=== PATIENT | female | born 1940 | race Caucasian/White ===

== ENCOUNTER 2024-03-26 23:53 | Inpatient (IN) | payer MEDICARE, MEDICAID, SELFPAY ==
[2024-03-26 20:45] VITALS: BP 154/84
--- NOTE | 2024-03-26 20:53 | ED.MUSCINJ ---
HPI-Injury
<Oksana Mcadams, WELDING TECHNICIAN - Last Filed: 03/29/24 16:47>
General
Chief Complaint: Fall
Source: patient, ambulance crew and [facility] records
Exam Limitations: none
Time Seen by Provider: 03/26/24 20:51
Travel History
Have you had any contact with someone who has COVID-19?: No
Do you have any symptoms of coronavirus? Fever > 100 degrees, chills, cough, shortness of breath, sore throat, loss of taste or smell, muscle aches, or headache?: No
History of Present Illness-Injury
Initial Injury comments:
83 yo female from [place] states she slipped and fell in her room. She denies feeling weak or dizzy prior to fall. She denies hitting her head, states she fell onto left side. Was not able to get up. Staff arrived immediately, there was no LOC.
Pt states she can't move her left leg due to pain in the left knee.
Past History
<Oksana Mcadams, WELDING TECHNICIAN - Last Filed: 03/29/24 16:47>
Past History
ED Past Medical History: Cancer, Psychiatric (anxiety. Has 86/90 Xanax in a pill bottle from 07/22/14 her friend brought. He will hold on to them until she is recovered from this incident.) and Other (Alcohol abuse); Negative Fibromyalgia, HTN,
Hypercholesterolemia or IDDM
ED Past Surgical History: None
Social History
Tobacco: Former smoker
Alcohol: Former
Drug: None
Personal: Single
Living: [facility]
Employment: Not employed
Family History
Family History: Hypertension; Negative Early CAD
Review of Systems
<Oksana Mcadams, WELDING TECHNICIAN - Last Filed: 03/29/24 16:47>
Review of Systems
Allergies reviewed?: Yes
All Other Systems: ROS reviewed and negative except as documented in HPI and ROS
Constitutional: Denies fever, fatigue or chills
Respiratory: Denies trouble breathing
Cardiac: Denies chest pain, palpitations or syncope
ABD/GI: Denies abdominal pain, nausea, vomiting, diarrhea, constipated, bloody stools, black stools or anorexia
: Denies dysuria, frequency, difficulty voiding or urgency
Musculoskeletal: Reports other (pain LLE); Denies edema
Skin: Reports no symptoms
Neurological: Reports no symptoms
Phy Exam
<Oksana Mcadams WELDING TECHNICIAN - Last Filed: 03/29/24 16:47>
Physical Exam
Physical Exam:
GENERAL: No acute distress. A&Ox3.
CONSTITUTIONAL: Afebrile.
Head : NC/AT
EYES: PERRL, conjunctivae normal
Neck: Supple
ENMT: moist mucus membranes, Pharynx nl
RESPIRATORY: Regular respirations, nonlabored, lungs clear.
CARDIOVASCULAR: Regular rate and rhythm, no murmurs, no rubs.
GI: Soft, nontender, normal BS
MUSCULOSKELETAL: Unable to move left leg due to pain in knee and hip. Well perfused. No edema.
SKIN: Warm, dry, pink
PSYCH: Normal mood and affect. Well kept, interactive and appropriate
NEUROLOGIC: Awake, alert and oriented. No focal neurological deficits
Injury Course
<Oksana Mcadams, WELDING TECHNICIAN - Last Filed: 03/29/24 16:47>
Orders/Labs/Results
Orders:
Orders
03/26/24 20:52
Urinalysis Reflex To Culture Urgent
Date Specimen was Collected: 03/27/24
Time Specimen was Collected: 15:11
Hip, Left 2-3 Views [CR Hip - LT w/wo Pel 2-3 Vw*] Urgent
Comment:
Reason For Exam: pain after fall
Include a pelvis x-ray?: Yes
03/26/24 21:31
Complete Blood Count/With Diff Urgent
Comprehensive Metabolic Panel Urgent
03/26/24 23:28
Admit/Transfer Patient As Directed
Co-Sign Provider:
Level of Care: Inpatient admission
Assign to:: Medical/Surgical
Physician / Group: barbara
Diagnosis: hip fracture
Reason for Hospitalization: hip fracture
Expected length of stay greater than two midnights?: Yes
ELOS- Estimated Length of Stay in days: 2
I certify the patient meets the requirements for IP care: Yes
Code Status As Directed
Resuscitation Status: Full Code
03/27/24 00:51
Acetaminophen [Tylenol] 650 mg PO Q4HPRN PRN
Bisacodyl [Dulcolax] 10 mg RECTAL DAILY PRN
HYDROmorphone [Dilaudid] 0.5 mg IV Q4HPRN PRN
Ketorolac [Toradol] 10 mg IV Q6HPRN PRN
Lidocaine 4% Cream [Lmx 4] 1 applic TOPICAL Q8H PRN
Magnesium Hydroxide [Milk of Magnesia] 30 ml PO DAILY PRN
Ondansetron HCl [Zofran] 4 mg PO Q8H PRN
Phosphate Enema [Fleet Phosphate Enema-Adult] 135 ml RECTAL DAILY PRN
03/27/24 00:51
ORTHOPEDIC CONSULT Routine
Consulting Provider: Jet Claire
Was physician already notified: Yes
Activity As Directed
Activity Level: As Tolerated
Pneumatic Compression Sleeves As Directed
Type: Knee high
Vital Signs As Directed
Frequency: Per unit guidelines
DX Deep Vein Thrombosis Video Routine
03/27/24 02:01
Calcium Carbonate [Oscal Burak 500] 1,000 mg PO Q8H PRN
03/27/24 Breakfast
NPO
Allow oral meds: Yes
Allow clear liquids: Sips of Clears
03/27/24 06:48
Complete Blood Count/With Diff IN AM
Comprehensive Metabolic Panel IN AM
03/27/24 08:00
Calcium Carbonate [Oscal Burak 500] 500 mg PO DAILY
Cholecalciferol (Vitamin D3) [VITAMIN D3 (cholecalciferol)] 50 mcg PO DAILY
Divalproex Delayed Rel. 12 Hr [Depakote (12 Hr Release)] 125 mg PO TID
FOLic ACID [Folvite] 0.4 mg PO DAILY
Lidocaine 4% Cream [Lmx 4] 1 applic TOPICAL BID
Oxybutynin Chloride [Ditropan] 5 mg PO BID
Sertraline HCl [Zoloft] 50 mg PO DAILY
Thiamine HCl [Vitamin B1] 100 mg PO DAILY
Vitamin B Complex with C [B COMPLEX w/VITAMIN C] 1 caplet PO DAILY
menthol [Biofreeze (menthol)] 1 applic TOPICAL BID
03/27/24 Dinner
Regular
At Your Request: Full Participation
03/27/24 18:00
Atorvastatin [Lipitor] 20 mg PO QPM
Famotidine [Pepcid] 20 mg PO QPM
Abnormal Lab Results
03/26/24
21:31
RBC 3.94 L 10^6/uL
(4.20-5.40)
Hgb 11.7 L g/dL
(12.0-16.0)
Hct 33.8 L %
(37.0-47.0)
Monocytes % 9.4 H %
(1.7-9.3)
Sodium 134 L mmol/L
(135-145)
BUN 25 H mg/dl
(7-17)
Glucose 103 H mg/dl
(70-99)
Total Protein 6.0 L g/dl
(6.3-8.2)
03/26/24 21:31
03/26/24 21:31
<Carroll Avalos, DO - Last Filed: 03/29/24 19:22>
Orders/Labs/Results
Orders:
Orders
03/26/24 20:52
Urinalysis Reflex To Culture Urgent
Date Specimen was Collected: 03/27/24
Time Specimen was Collected: 15:11
Hip, Left 2-3 Views [CR Hip - LT w/wo Pel 2-3 Vw*] Urgent
Comment:
Reason For Exam: pain after fall
Include a pelvis x-ray?: Yes
03/26/24 21:31
Complete Blood Count/With Diff Urgent
Comprehensive Metabolic Panel Urgent
03/26/24 23:28
Admit/Transfer Patient As Directed
Co-Sign Provider:
Level of Care: Inpatient admission
Assign to:: Medical/Surgical
Physician / Group: barbara
Diagnosis: hip fracture
Reason for Hospitalization: hip fracture
Expected length of stay greater than two midnights?: Yes
ELOS- Estimated Length of Stay in days: 2
I certify the patient meets the requirements for IP care: Yes
Code Status As Directed
Resuscitation Status: Full Code
03/27/24 00:51
Acetaminophen [Tylenol] 650 mg PO Q4HPRN PRN
Bisacodyl [Dulcolax] 10 mg RECTAL DAILY PRN
HYDROmorphone [Dilaudid] 0.5 mg IV Q4HPRN PRN
Ketorolac [Toradol] 10 mg IV Q6HPRN PRN
Lidocaine 4% Cream [Lmx 4] 1 applic TOPICAL Q8H PRN
Magnesium Hydroxide [Milk of Magnesia] 30 ml PO DAILY PRN
Ondansetron HCl [Zofran] 4 mg PO Q8H PRN
Phosphate Enema [Fleet Phosphate Enema-Adult] 135 ml RECTAL DAILY PRN
03/27/24 00:51
ORTHOPEDIC CONSULT Routine
Consulting Provider: Jet Claire
Was physician already notified: Yes
Activity As Directed
Activity Level: As Tolerated
Pneumatic Compression Sleeves As Directed
Type: Knee high
Vital Signs As Directed
Frequency: Per unit guidelines
DX Deep Vein Thrombosis Video Routine
03/27/24 02:01
Calcium Carbonate [Oscal Burak 500] 1,000 mg PO Q8H PRN
03/27/24 Breakfast
NPO
Allow oral meds: Yes
Allow clear liquids: Sips of Clears
03/27/24 06:48
Complete Blood Count/With Diff IN AM
Comprehensive Metabolic Panel IN AM
03/27/24 08:00
Calcium Carbonate [Oscal Burak 500] 500 mg PO DAILY
Cholecalciferol (Vitamin D3) [VITAMIN D3 (cholecalciferol)] 50 mcg PO DAILY
Divalproex Delayed Rel. 12 Hr [Depakote (12 Hr Release)] 125 mg PO TID
FOLic ACID [Folvite] 0.4 mg PO DAILY
Lidocaine 4% Cream [Lmx 4] 1 applic TOPICAL BID
Oxybutynin Chloride [Ditropan] 5 mg PO BID
Sertraline HCl [Zoloft] 50 mg PO DAILY
Thiamine HCl [Vitamin B1] 100 mg PO DAILY
Vitamin B Complex with C [B COMPLEX w/VITAMIN C] 1 caplet PO DAILY
menthol [Biofreeze (menthol)] 1 applic TOPICAL BID
03/27/24 Dinner
Regular
At Your Request: Full Participation
03/27/24 18:00
Atorvastatin [Lipitor] 20 mg PO QPM
Famotidine [Pepcid] 20 mg PO QPM
Abnormal Lab Results
03/26/24
21:31
RBC 3.94 L 10^6/uL
(4.20-5.40)
Hgb 11.7 L g/dL
(12.0-16.0)
Hct 33.8 L %
(37.0-47.0)
Monocytes % 9.4 H %
(1.7-9.3)
Sodium 134 L mmol/L
(135-145)
BUN 25 H mg/dl
(7-17)
Glucose 103 H mg/dl
(70-99)
Total Protein 6.0 L g/dl
(6.3-8.2)
03/26/24 21:31
03/26/24 21:31
<Oksana Mcadams WELDING TECHNICIAN - Last Filed: 03/29/24 16:47>
MDM/Problems Addressed
Differential Diagnosis Includes:
Fx left hip, dehydration, UTI
MDM/Problems Addressed:
83 yo female from [place] with history of HLD, HTN, MDD, bipolar, GERD, states she slipped and fell in her room. She denies feeling weak or dizzy prior to fall. She denies hitting her head, states she fell onto left side. Was not able to get up.
Staff arrived immediately, there was no LOC. Pt states she can't move her left leg due to pain in the left knee.
On exam left leg is externally rotated and suspect left hip injury. Left knee and mid to distal femur is without bony tenderness to palpation.
Pt denies CP, SOB, abdominal pain, headache, neck pain.
Pt typically ambulates without assistance
9:50 PM
CBC with no clinically significant abnormality
Case discussed with Dr. Avalos who will assume care from this point
U/A CMP and left hip xray pending
Chronic conditions affecting care: HTN
<Oksana Mcadams WELDING TECHNICIAN - Last Filed: 03/29/24 16:47>
*Critical Care Note
Total Time (30-74mins, 75-104mins- exclusive of procedures): Not Applicable
ED Attending Note
<Oksana Mcadams, WELDING TECHNICIAN - Last Filed: 03/29/24 16:47>
-
Portions of this chart may have been created with voice recognition software.� Occasional wrong word or��sound alike� substitutions may have occurred due to the inherent limitations of voice recognition software.
<Carroll Avalos, DO - Last Filed: 03/29/24 19:22>
ED Attending Note
Patient seen and examined by attending physician: Yes
ED Attending Note:
I have reviewed and agree with history and treatment plan by Sara Mcadams. Patient with left hip femoral neck fracture. Admit to hospitalist. Orthopedics aware.
Discharge Plan
Departure
Patient Disposition: Admit
Date of Disposition: 03/26/24
Time of Disposition: 22:51
Admit to: Med/Surg
Presentation/result/management discussed w/ accepting MD/DO: Hospitalist
Condition: Fair
Discharge Problem:
Closed fracture of neck of left femur
Interventions
Interventions:
*Risk Screen - Suicide Last Done: 03/26/24 20:45
*General Assessment Last Done: 03/26/24 20:45
*Neglect/Abuse Screening Last Done: 03/26/24 20:45
ED- Fall Risk Assessment Last Done: 03/26/24 21:32
*ED COVID-19 Vaccine History Last Done: 03/26/24 20:45
*Nursing Disposition Last Done: 03/27/24 00:00
ED-Musculoskeletal Assessment Last Done: 03/27/24 10:15
ED- Neurological Assessment Last Done: 03/27/24 10:15
ED-Skin Assessment Last Done: 03/27/24 10:15
Discharge Date and Time
Discharge Date/Time: 03/27/24 11:00
[2024-03-26 21:35] LABS: % Basophils 0.8 % (0-2); % Eosinophils 3.6 % (0-6); % Immature Granulocytes 0.3 % (0-0.5); % Lymphocytes 21.2 % (20.5-51.1); % Monocytes 9.4 % (1.7-9.3); % Neutrophils 64.7 % (42.2-75.2); Absolute Basophils 0.1 10^3/uL (0-0.2); Absolute Eosinophils 0.2 10^3/uL (0-0.7); Absolute Lymphocytes 1.4 10^3/uL (1.2-3.4); Absolute Monocytes 0.6 10^3/uL (0.1-0.6); Absolute Neutrophils 4.3 10^3/uL (1.4-6.5); Hematocrit 33.8 % (37.0-47.0); Hemoglobin 11.7 g/dL (12.0-16.0); Mean Corp Hgb Conc. 34.6 g/dL (33.0-37.0); Mean Corpuscular Hgb 29.7 pg (27.0-31.0); Mean Corpuscular Volume 85.8 fL (81.0-99.0); Mean Platelet Volume 9.8 fL (7.4-10.4); Nucleated Red Blood Cells % 0 %; Platelet Count 159 10^3/uL (130-400); Red Blood Cell Count 3.94 10^6/uL (4.20-5.40); Red Cell Dist. Width 13.3 % (11.5-14.5); White Blood Cell Count 6.6 10^3/uL (4.8-10.8)
[2024-03-26 21:41] VITALS: BMI 28.7
[2024-03-26 21:53] LABS: ALT (SGPT) 13 U/L (0-35); AST (SGOT) 22 U/L (14-36); Albumin 3.9 g/dl (3.5-5.0); Alkaline Phosphatase 60 U/L (38-126); Blood Urea Nitrogen 25 mg/dl (7-17); Calcium 9.5 mg/dl (8.4-10.2); Carbon Dioxide 28 mmol/L (22-30); Chloride 100 mmol/L (98-107); Estimated Creatinine Clearance 53 ml/min; Glucose 103 mg/dl (70-99); Potassium 4.1 mmol/L (3.5-5.1); Sodium 134 mmol/L (135-145); Total Bilirubin 1.1 mg/dl (0.2-1.3); eGFR > 60.00
--- NOTE | 2024-03-26 23:33 | HPS.HSE ---
Family Physician
-
Family Physician: Travis Zapien, DO
Chief Complaint
-
fall
History of Present Illness
83-year-old female past medical history of CLL, normal pressure hydrocephalus, anxiety, depression, former alcohol use disorder, presenting from [facility] after slipping and falling in her room. Denies feeling weak or dizziness prior to fall. She
denies hitting her head. She fell onto her left side. She was unable to get up. She denies loss of consciousness, chest pain or shortness of breath. Cannot move her left leg due to pain in the left knee.
She sometimes ambulates with walker at baseline.
Patient denies excessive alcohol use and states that she drinks alcohol on occasion socially. Denies smoking.
Medical History
Past Medical History
Past Medical History: Reports Other (CLL, normal pressure hydrocephalus, anxiety, depression, former alcohol use disorder)
Past Surgical History: Reports None
Social History
Tobacco: Non-smoker
Alcohol: Occasional
Drug: None
Family History
Family History: Not pertinent
Allergies / Home Medications
Allergies reflects when Allergies were last updated in [facility].
Home Medications with original date entered in [facility]
Allergy/Medication List:
Allergies
Allergy/AdvReac Type Severity Reaction Status Date / Time
adhesive tape [Adhesive Tape] Allergy Severe 'burned Verified 03/26/24 20:45
skin'
Home Medications
sertraline 50 mg tablet 50 mg PO DAILY 04/16/15
acetaminophen 325 mg tablet 650 mg PO DAILY 03/26/24
acetaminophen 325 mg tablet 650 mg PO Q6H PRN mild pain/temp>100.5 03/26/24
atorvastatin 20 mg tablet 20 mg PO QPM 03/26/24
bisacodyl 10 mg rectal suppository (Dulcolax (bisacodyl)) 10 mg AL DAILY PRN if no bm x 3 days 03/26/24
calcium carbonate 1,000 mg PO Q8H PRN indigestion 03/26/24
calcium carbonate (Calcium 600) 600 mg PO DAILY 03/26/24
cholecalciferol (vitamin D3) 62.5 mcg (2,500 unit) capsule 62.5 mcg PO DAILY 03/26/24
divalproex 125 mg tablet,delayed release 125 mg PO TID 03/26/24
famotidine 20 mg tablet 20 mg PO QPM 03/26/24
folic acid 400 mcg tablet 0.4 mg PO DAILY 03/26/24
ibuprofen 800 mg tablet 800 mg PO Q6H PRN mild pain 03/26/24
lidocaine 4 % topical cream 1 applic topical BID knee pain 03/26/24
lidocaine 4 % topical cream 1 applic topical Q8H PRN knee pain 03/26/24
magnesium hydroxide 400 mg/5 mL oral suspension (Milk of Magnesia) 30 ml PO DAILY PRN if no bm in 3 days 03/26/24
menthol 4 % topical gel (Biofreeze (menthol)) 1 applic topical BID both knees 03/26/24
naproxen 250 mg tablet 125 mg PO BID 03/26/24
ondansetron HCl 4 mg tablet 4 mg PO Q8H PRN nausea 03/26/24
oxybutynin chloride 5 mg tablet 5 mg PO BID 03/26/24
sodium phosphates 19 gram-7 gram/118 mL enema (Fleet Enema) 118 ml AL DAILY PRN if suppository is not effective for 24hrs 03/26/24
thiamine HCl (vitamin B1) 100 mg tablet 100 mg PO DAILY 03/26/24
vitamin B complex 1 tab PO DAILY 03/26/24
Review of Systems
-
History Source: Patient
A 12 point ROS was completed and negative except as noted: Yes
Constitutional: Reports No Symptoms
EENT: Reports No Symptoms
Respiratory: Reports No Symptoms
Cardiac: Reports No Symptoms
Abdomen/GI: Reports No Symptoms
: Reports No Symptoms
Musculoskeletal: Reports See HPI
Skin: Reports No Symptoms
Neurological: Reports No Symptoms
Endocrine: Reports No Symptoms
Hematologic/Lymphatic: Reports No Symptoms
Psych: Reports No Symptoms
Physical Exam
Vital Signs
Vital Signs
Temp Pulse Resp BP Pulse Ox
97.4 F 73 19 154/84 95
03/26/24 21:40 03/26/24 20:45 03/26/24 20:45 03/26/24 20:45 03/26/24 20:45
Physical Exam
General: Well Developed, Well Nourished and No Apparent Distress
HEENT: NormoCephalic, Moist mucous membranes and Atraumatic
Respiratory: Clear
Cardiac: S1/S2 and Regular Rhythm; No Murmur or Rub
GI: Soft, Non Tender, Non Distended and Normal Bowel Sounds; No Organomegaly
Rectal: Deferred by Provider
Musculoskeletal: No Clubbing, No Cyanosis and No Edema
Skin: No Rash
Neuro: Nonfocal/grossly intact
Laboratory Results
-
03/26/24 21:31
03/26/24 21:31
Laboratory Results
Total Bilirubin 1.1 mg/dl (0.2-1.3) 03/26/24 21:31
AST 22 U/L (14-36) 03/26/24 21:31
ALT 13 U/L (0-35) 03/26/24 21:31
Alkaline Phosphatase 60 U/L (38-126) 03/26/24 21:31
Data Reviewed
-
Lab Data: Labs Reviewed by me
Old Records: Reviewed
Impression/Plan
-
IMPRESSION:
PLAN:
# Acute mildly displaced left intertrochanteric hip fracture
-Tylenol, Dilaudid for pain
-Orthopedics consulted
-N.p.o. past midnight
-Tylenol, Toradol, Dilaudid as needed for pain
-Check EKG
-Patient with low risk of cardiovascular complications and can proceed to surgery
CLL
Normal pressure hydrocephalus
Anxiety/depression
-Continue sertraline
Alcohol use disorder
-Continue thiamine, folic acid
Hyperlipidemia
-Continue statin
Divalproex use
-Patient denies any history of bipolar, seizures or tremors, unclear why she takes
Overactive bladder
-Continue oxybutynin
Full code
DVT prophylaxis�SCDs
N.p.o. past midnight
[2024-03-27] VITALS (12 sets, daily range): BP systolic 116–140; BP diastolic 47–86
[2024-03-27] MEDS: DILAUDID 0.5 MG IV (02:47)
[2024-03-27 07:03] LABS: % Basophils 0.3 % (0-2); % Eosinophils 0.1 % (0-6); % Immature Granulocytes 0.4 % (0-0.5); % Lymphocytes 9.7 % (20.5-51.1); % Monocytes 6.7 % (1.7-9.3); % Neutrophils 82.8 % (42.2-75.2); Absolute Monocytes 0.7 10^3/uL (0.1-0.6); Absolute Neutrophils 8.1 10^3/uL (1.4-6.5); Hematocrit 33.1 % (37.0-47.0); Mean Corp Hgb Conc. 33.2 g/dL (33.0-37.0); Mean Corpuscular Hgb 29.6 pg (27.0-31.0); Mean Platelet Volume 10.1 fL (7.4-10.4); Nucleated Red Blood Cells % 0 %; Platelet Count 151 10^3/uL (130-400); Red Blood Cell Count 3.72 10^6/uL (4.20-5.40); Red Cell Dist. Width 13.2 % (11.5-14.5); White Blood Cell Count 9.8 10^3/uL (4.8-10.8)
--- NOTE | 2024-03-27 07:45 | W.PN.UPDATE ---
Update Note
Progress Note Update
Patient seen at bedside and chart reviewed
83 yo F s/p fall with left IT femur fracture
NWB LLE
NPO
Hold DVT ppx
Pain control
Medical management per primary team
To OR today for operative fixation left IT femur fracture pending medical clearance and OR availibility
[2024-03-27 07:54] LABS: ALT (SGPT) 12 U/L (0-35); AST (SGOT) 24 U/L (14-36); Albumin 3.5 g/dl (3.5-5.0); Alkaline Phosphatase 52 U/L (38-126); Blood Urea Nitrogen 23 mg/dl (7-17); Carbon Dioxide 30 mmol/L (22-30); Chloride 100 mmol/L (98-107); Estimated Creatinine Clearance 68 ml/min; Glucose 121 mg/dl (70-99); Potassium 4.7 mmol/L (3.5-5.1); Sodium 136 mmol/L (135-145); Total Bilirubin 1.2 mg/dl (0.2-1.3); Total Protein 5.6 g/dl (6.3-8.2); eGFR > 60.00
--- NOTE | 2024-03-27 10:13 | W.PN.HOSP.TC ---
Today's Communication/Plan
-
For surgical fixation today
Assessment / Plan
Assessment / Plan
HPI: 83-year-old female past medical history of CLL, normal pressure hydrocephalus, anxiety, depression, former alcohol use disorder, presenting from [facility] after slipping and falling in her room. Denies feeling weak or dizziness prior to fall.
She denies hitting her head. She fell onto her left side. She was unable to get up. She denies loss of consciousness, chest pain or shortness of breath. Cannot move her left leg due to pain in the left knee.
She sometimes ambulates with walker at baseline.
# Acute mildly displaced left intertrochanteric hip fracture
Appreciate orthopedic surgery input, plan for ORIF today
Tylenol, Toradol, Dilaudid as needed for pain
Patient with low risk of cardiovascular complications and can proceed to surgery
# CLL
Monitor
Normal pressure hydrocephalus
Anxiety/depression
-Continue sertraline
Alcohol use disorder
-Continue thiamine, folic acid
Hyperlipidemia
-Continue statin
Divalproex use
-Patient denies any history of bipolar, seizures or tremors, unclear why she takes
Overactive bladder
-Continue oxybutynin
DVT prophylaxis�SCDs
Full code
Total time spent to see the patient on the floor, examine the patient, review data and lab results, discuss treatment plan with patient, nursing staff around 35 minutes.
Physical Exam
General: No acute distress
HEENT: Normocephalic, Atraumatic, EOMI, MMM
Respiratory: Clear to Auscultation bilaterally
Cardiac: Normal S1/S2, Regular Rate and Rhythm
GI: Soft, Nontender, Nondistended, Normal Bowel Sounds
Extremities: No Clubbing, Cyanosis
Left leg shortened and externally rotated
Neuro: Nonfocal/Grossly Intact
Psych: Calm, Cooperative
Derm: No Visible lesions
Anticipated Discharge: > 48 hours
Subjective/Interval History
-
Date of Service: March 27, 2024
Patient reports her left hip pain is tolerable. No chest pain, no shortness of breath. No fever, no vomiting.
Objective Data
-
Labs:
Laboratory Results
03/27/24
06:48
WBC 9.8
Hgb 11.0 L
Hct 33.1 L
Plt Count 151
Sodium 136
Potassium 4.7
Chloride 100
Carbon Dioxide 30
BUN 23 H
Creatinine 0.7
Glucose 121 H
Calcium 9.0
Total Bilirubin 1.2
AST 24
ALT 12
Alkaline Phosphatase 52
Vital Signs:
Vital Signs
Temp Pulse Resp BP Pulse Ox
97.4 F 77 16 120/72 97
03/26/24 21:40 03/27/24 02:50 03/27/24 02:50 03/27/24 02:50 03/27/24 03:15
[2024-03-27] MEDS: DITROPAN 5 MG PO ×2 (10:25→21:56)
[2024-03-27] MEDS: VITAMIN B1 100 MG PO (10:25)
[2024-03-27] MEDS: ZOLOFT 50 MG PO (10:25)
[2024-03-27] MEDS: FOLVITE 0.400000000000000022 MG PO (10:25)
[2024-03-27] MEDS: VITAMIN D3 (cholecalciferol) 50 MCG PO (10:25)
[2024-03-27] MEDS: DEPAKOTE (12 HR RELEASE) 125 MG PO ×2 (10:26→21:55)
[2024-03-27] MEDS: OSCAL CAL 500 500 MG PO ×2 (10:27)
[2024-03-27] MEDS: LMX 4 1 APPLIC TOPICAL (10:28)
[2024-03-27] MEDS: B COMPLEX w/VITAMIN C PO (12:00)
--- NOTE | 2024-03-27 15:22 | PTCARENOTE ---
Pt being held in SDS until surgery. Pt unable to void on bed newberry. Bladder scanned for over [address] Garcia notified and order placed for straight cath. Pt straight cath'd for 450 of mayank urine. Urine culture sent.
[2024-03-27 15:50] LABS: Urine Albumin Negative (Neg - Trace); Urine Bilirubin 1+ (Negative); Urine Character Clear (Clear); Urine Color Yellow; Urine Glucose Negative (Negative); Urine Ketone 1+ (Negative); Urine Leukocyte Trace (Negative); Urine Nitrite Negative (Negative); Urine Occult Blood Negative (Negative); Urine Specific Gravity 1.015 (<1.030); Urine Urobilinogen 1+ (Neg - 1+)
[2024-03-27 15:58] LABS: Urine Red Blood Cell 0-2 /HPF (0-2); Urine Squamous Cell 0-2 /LPF (Few)
[2024-03-27 15:59] LABS: Urine Bacteria Few (Negative); Urine White Cell 0-2 /HPF (0-5)
[2024-03-27] MEDS: ZOFRAN 4 MG IV ×2 (16:14→19:18)
--- NOTE | 2024-03-27 16:39 | PTCARENOTE ---
Pt was a hold in SDS. OR came to get pt at aprox 1630. CHG cloths done and new gown placed. Most admission interventions done but unable to do the historical part of admission due to error code on screen.
--- NOTE | 2024-03-27 18:00 | OR.RPT ---
Operative Report
Operative Report
Anesthesia Type:
General
Operative Indications:
Left intertrochanteric femur fracture
Operative Findings :
Same
Complications:
None
Implants:
[place] gamma nail 125 degrees x 10 mm, 100 mm cephalomedullary screw, 35 x 5 mm distal interlocking screw
Procedure and Technique:
Left short cephalomedullary nail insertion
INDICATIONS FOR PROCEDURE:
83-year-old patient presented status post mechanical fall. There was subsequently diagnosed with an intertrochanteric femur fracture. Orthopedics was consulted for further evaluation and treatment. After discussion with the patient and her
family, decision was made to proceed with operative intervention in the form of short cephalomedullary nail. Long discussion was had regarding risks and benefits of procedure. Risks include but are not limited to infection, blood loss, damage to
surrounding structures, persistent pain, loss of function, need for repeat surgery, implant cut out, periprosthetic fracture, DVT/PE and adverse risks of anesthesia. Benefits include early mobilization and fracture stabilization. After discussion
written informed consent was obtained.
OPERATIVE PROCEDURE:
Patient was seen and identified in the preoperative holding area. Operative extremity was marked. Patient was taken to the operating room and provided anesthesia by the anesthesia team. Placed supine on fracture table. Nonoperative extremity was
placed in a scissored position and padded with a pillow to the central post of the fracture table. Operative extremity was placed in a well-padded fracture boot. Biplanar fluoroscopy confirmed appropriate reduction after axial traction, adduction
and slight internal rotation of the fracture. Operative extremity was then prepped and draped in normal sterile fashion. Timeout was performed again identifying the operative extremity correctly. Preoperative antibiotics were addressed.
Approximately 5 cm incision was made 2 fingerbreadths proximal to the greater trochanter. Sharp dissection was carried through skin and subcutaneous tissues deep fascial layers. Guidepin was then inserted under biplanar fluoroscopic guidance
through the greater trochanter in accordance with the implants operative technique. This was inserted to a depth just distal to the lesser trochanter. Proximal opening reamer was then utilized. A 10 millimeter X 125 degree short cephalomedullary
nail was then inserted to the appropriate depth. Trocar was then inserted through the aiming arm. Sharp dissection was then carried through skin and subcutaneous tissues as well as deep fascial layers. Guidewire was inserted through the trocar
into the femoral neck and head. Appropriate position was confirmed under biplanar fluoroscopy. Attention was made to minimize the tip apex distance. Measurements were obtained for the cephalomedullary screw. Cannulated drill was then drilled to
the appropriate depth followed by the insertion of cannulated cephalomedullary screw. Appropriate final position of the screw within the confines of the femoral neck and head were confirmed again on biplanar fluoroscopy. Some compression was
achieved through the implant. Setscrew was then deployed. Additional trocar was then inserted through the aiming arm for the distal interlocking screw. Sharp dissection was carried through skin, subcutaneous tissues and deep fascial layers.
Appropriate length interlocking screw was then drilled and inserted. Final appropriate positioning was confirmed again on biplanar fluoroscopy. Satisfied with the extent of surgery, wounds were copiously irrigated with normal saline solution and
closed in a layered fashion utilizing 0 Vicryl for deep fascial layer, 2-0 Vicryl for subcu cutaneous layer and janel for skin. Aquacel dressings were applied. Anesthesia was reversed and patient was taken to the operating room in stable
condition. Postoperative plans will include weightbearing the patient's tolerance operative extremity. Will recommend renally dosed Lovenox x 28 days for DVT prophylaxis. Follow-up in the office in 2 to 3 weeks for repeat evaluation with planned
removal of janel
Disposition:
PACU stable condition
--- NOTE | 2024-03-27 18:14 | SUR.PHASEI ---
Rec'd sleepy in bed somewhat agitated and confused, reassured, oriented x3 by RN reassured, positioned for comfort
--- NOTE | 2024-03-27 18:23 | SUR.PHASEI ---
Confused, attempting to get out of bed, reassured, reoriented, warm blankets given zachary well
--- NOTE | 2024-03-27 18:35 | SUR.PHASEI ---
Remains sl agitated, reassured, c/o 'I feel like I'm gonna throw up' alcohol smelled, zachary well, stating, wants to get up reassured, reoriented
--- NOTE | 2024-03-27 18:54 | SUR.PHASEI ---
Calmer, no c/o nausea, ice chip given zachary well
--- NOTE | 2024-03-27 19:04 | CON.ORTHO ---
Consultation
-
Date/Time Consultation Requested: 1030 PM 03/26/2024
Date/Time Consultation Performed: 730 AM 03/27/2024
Requesting Provider: ED
Performing Provider: Alethea
Reason for Consultation: Left hip fracture
Consultation - Orthopedics
History
83-year-old female presented to the emergency department status post slip and fall at her living facility with complaints of left hip pain and inability to bear weight. She was subsequently diagnosed with a left intertrochanteric femur fracture.
She was admitted to the hospitalist service and orthopedics was consulted for further evaluation and treatment. This morning patient reports pain well localized to the left hip and groin area. Pain is made worse with any direct palpation affected
area and with attempted ambulation. Denies pain elsewhere. She reports occasionally using assistive devices for ambulatory purposes.
Allergies / Home Medications
Past medical history: CLL, normal pressure hydrocephalus, anxiety, depression
Past surgical history: None reported
Social history: Non-smoker, occasional alcohol use
Family history: Not pertinent
Allergy/AdvReac Type Severity Reaction Status Date / Time
adhesive tape [Adhesive Tape] Allergy 'burned Verified 03/27/24 16:27
skin'
�Medication �Instructions �Recorded
sertraline 50 mg tablet 50 mg PO DAILY 04/16/15
acetaminophen 325 mg tablet 650 mg PO DAILY 03/26/24
acetaminophen 325 mg tablet 650 mg PO Q6H PRN mild 03/26/24
pain/temp>100.5
atorvastatin 20 mg tablet 20 mg PO QPM 03/26/24
bisacodyl 10 mg rectal suppository 10 mg FL DAILY PRN if no bm x 3 03/26/24
(Dulcolax (bisacodyl)) days
calcium carbonate 1,000 mg PO Q8H PRN indigestion 03/26/24
calcium carbonate (Calcium 600) 600 mg PO DAILY 03/26/24
cholecalciferol (vitamin D3) 62.5 62.5 mcg PO DAILY 03/26/24
mcg (2,500 unit) capsule
divalproex 125 mg tablet,delayed 125 mg PO TID 03/26/24
release
famotidine 20 mg tablet 20 mg PO QPM 03/26/24
folic acid 400 mcg tablet 0.4 mg PO DAILY 03/26/24
ibuprofen 800 mg tablet 800 mg PO Q6H PRN mild pain 03/26/24
lidocaine 4 % topical cream 1 applic topical BID knee pain 03/26/24
lidocaine 4 % topical cream 1 applic topical Q8H PRN knee pain 03/26/24
magnesium hydroxide 400 mg/5 mL 30 ml PO DAILY PRN if no bm in 3 03/26/24
oral suspension (Milk of Magnesia) days
menthol 4 % topical gel (Biofreeze 1 applic topical BID both knees 03/26/24
(menthol))
naproxen 250 mg tablet 125 mg PO BID 03/26/24
ondansetron HCl 4 mg tablet 4 mg PO Q8H PRN nausea 03/26/24
oxybutynin chloride 5 mg tablet 5 mg PO BID 03/26/24
sodium phosphates 19 gram-7 118 ml FL DAILY PRN if suppository 03/26/24
gram/118 mL enema (Fleet Enema) is not effective for 24hrs
thiamine HCl (vitamin B1) 100 mg 100 mg PO DAILY 03/26/24
tablet
vitamin B complex 1 tab PO DAILY 03/26/24
Vital Signs / Lab Results
Temp Pulse Resp BP Pulse Ox
98.8 F 68 18 123/47 95
03/27/24 18:00 03/27/24 18:30 03/27/24 18:30 03/27/24 18:30 03/27/24 18:30
03/27/24 06:48
03/27/24 06:48
10 point review systems reviewed and negative unless otherwise stated
General: Pleasant, no acute distress, at rest
Musculoskeletal left lower extremity
Skin intact, no erythema, no significant ecchymotic staining
There is tenderness palpation over groin and lateral trochanteric flare
No ipsilateral palpable knee effusion
Positive EHL, FHL, ankle dorsiflexion, plantarflexion
Sensation intact to light touch in all distributions distally
Distal extremity warm and pink
No other areas of bony tenderness palpation or crepitation of long bones or joints on tertiary examination
Diagnostic studies
X-rays left hip reviewed by myself that show displaced left intertrochanteric femur fracture
Assessment / Plan
83-year-old female left intertrochanteric femur fracture. I do long detailed discussion the patient at bedside regarding diagnosis and treatment options. We discussed both surgical and nonsurgical options. After discussion we mutually elected to
proceed with operative fixation of left intertrochanteric femur fracture in the form of cephalomedullary nailing. We discussed risks benefits and alternatives to surgery. We discussed the usual expected perioperative and postoperative course.
After discussion written informed consent was obtained.
Nonweightbearing left lower extremity
N.p.o. for surgery today
Please hold DVT prophylaxis
Pain control
Medical management per primary team
Plan: 2 OR today for operative fixation left intertrochanteric femur fracture
--- NOTE | 2024-03-27 19:08 | SUR.PHASEI ---
Nausea returned to medicate, reassured
[2024-03-27] MEDS: NSS 1000 IV (19:14)
--- NOTE | 2024-03-27 19:17 | SUR.PHASEI ---
Awaiting natalya for pharmacy, vss,
[2024-03-27] MEDS: LMX 4 TOPICAL (21:00)
--- NOTE | 2024-03-27 21:00 | TRANSFER ---
Received report from CORN PRESS OPERATOR Teagan. Pt arrived to floor in bed, s/p Left hip ORIF. Left hip with x2 aquacells, CDI - firmness felt to distal incision. Pt c/o nausea but denying pain. Pt reported numbness to left hip and toes. Neurovascular check
otherwise fair. Pt oriented to room and staff. Call arenas within reach, bed in lowest position.
[2024-03-27] MEDS: TYLENOL PO ×2 (21:09→21:59)
[2024-03-27] MEDS: DEPAKOTE (12 HR RELEASE) PO ×2 (21:09→21:56)
[2024-03-27] MEDS: PEPCID PO (21:56)
[2024-03-27] MEDS: LIPITOR PO (21:56)
[2024-03-27] MEDS: TYLENOL 1000 MG PO (21:57)
[2024-03-27] MEDS: COLACE PO (21:59)
--- NOTE | 2024-03-27 22:35 | PTCARENOTE ---
TT parts person ortho regarding firmness to left hip distal incision, no response received. TT PROP DRAWER - PROP DRAWER ordered to continue w ice applications topically. No new orders at this time, pt denies pain.
[2024-03-28] VITALS (7 sets, daily range): BP systolic 82–120; BP diastolic 40–66; PULSE 86–95; O2SAT 91
[2024-03-28] MEDS: ANCEF 5 IV ×2 (00:12→08:29)
[2024-03-28] MEDS: NSS 1000 IV ×2 (05:38→15:23)
[2024-03-28 05:46] LABS: Hematocrit 26.2 % (37.0-47.0); Hemoglobin 8.8 g/dL (12.0-16.0); Mean Corp Hgb Conc. 33.6 g/dL (33.0-37.0); Mean Corpuscular Hgb 29.3 pg (27.0-31.0); Mean Corpuscular Volume 87.3 fL (81.0-99.0); Mean Platelet Volume 10.8 fL (7.4-10.4); Platelet Count 158 10^3/uL (130-400); Red Cell Dist. Width 13.4 % (11.5-14.5); White Blood Cell Count 9.1 10^3/uL (4.8-10.8)
[2024-03-28 06:13] LABS: Blood Urea Nitrogen 19 mg/dl (7-17); Calcium 8.6 mg/dl (8.4-10.2); Carbon Dioxide 26 mmol/L (22-30); Chloride 103 mmol/L (98-107); Estimated Creatinine Clearance 79 ml/min; Glucose 125 mg/dl (70-99); Magnesium 1.9 mg/dl (1.6-2.3); Potassium 4.4 mmol/L (3.5-5.1); Sodium 136 mmol/L (135-145); eGFR > 60.00
--- NOTE | 2024-03-28 07:23 | W.PN.HOSP.TC ---
Today's Communication/Plan
-
see bold
Assessment / Plan
Assessment / Plan
HPI: 83-year-old female past medical history of CLL, normal pressure hydrocephalus, anxiety, depression, former alcohol use disorder, presenting from [facility] after slipping and falling in her room. Denies feeling weak or dizziness prior to fall.
She denies hitting her head. She fell onto her left side. She was unable to get up. She denies loss of consciousness, chest pain or shortness of breath. Cannot move her left leg due to pain in the left knee.
She sometimes ambulates with walker at baseline.
# Acute mildly displaced left intertrochanteric hip fracture
Appreciate orthopedic surgery input, s/p gamma nail 03/[address] Claire
Tylenol, Toradol, Dilaudid as needed for pain
PT/OT, laxatives
From [facility]
#Hypotension
Continue IV fluids, start midodrine
#Acute blood loss anemia due to surgery
Monitor hemoglobin, transfuse for hemoglobin less than 8.0
# CLL
Monitor
Normal pressure hydrocephalus
Anxiety/depression
-Continue sertraline
Alcohol use disorder
-Continue thiamine, folic acid
Hyperlipidemia
-Continue statin
Divalproex use
-Patient denies any history of bipolar, seizures or tremors, unclear why she takes
Overactive bladder
-Continue oxybutynin
DVT prophylaxis�SQ lovenox
Full code
Total time spent to see the patient on the floor, examine the patient, review data and lab results, discuss treatment plan with patient, nursing staff around 35 minutes.
Physical Exam
General: No acute distress
HEENT: Normocephalic, Atraumatic, EOMI, MMM
Respiratory: Clear to Auscultation bilaterally
Cardiac: Normal S1/S2, Regular Rate and Rhythm
GI: Soft, Nontender, Nondistended, Normal Bowel Sounds
Extremities: No Clubbing, Cyanosis
Left leg shortened and externally rotated
Neuro: Nonfocal/Grossly Intact
Psych: Calm, Cooperative
Derm: No Visible lesions
Anticipated Discharge: > 48 hours
Subjective/Interval History
-
Date of Service: March 28, 2024
Patient reports she only has hip pain with movement. No fever, no chest pain. She has some nausea, no vomiting. No shortness of breath.
Objective Data
-
Labs:
Laboratory Results
03/28/24
04:59
WBC 9.1
Hgb 8.8 L
Hct 26.2 L
Plt Count 158
Sodium 136
Potassium 4.4
Chloride 103
Carbon Dioxide 26
BUN 19 H
Creatinine 0.6
Glucose 125 H
Calcium 8.6
Vital Signs:
Vital Signs
Temp Pulse Resp BP Pulse Ox
98.4 F 91 16 120/66 91
03/28/24 03:07 03/28/24 03:07 03/28/24 03:07 03/28/24 03:07 03/28/24 03:07
I&O
03/27/24 03/28/24 03/29/24
06:59 06:59 06:59
Intake Total 150 / 150
Output Total 850 / 850
Balance -700 / -700
[2024-03-28] MEDS: LOVENOX 40 MG SC (08:29)
[2024-03-28] MEDS: DEPAKOTE (12 HR RELEASE) 125 MG PO ×3 (08:32→21:32)
[2024-03-28] MEDS: COLACE 100 MG PO ×2 (08:32→21:33)
[2024-03-28] MEDS: TYLENOL 1000 MG PO ×3 (08:32→21:32)
[2024-03-28] MEDS: VITAMIN B1 100 MG PO (08:32)
[2024-03-28] MEDS: B COMPLEX w/VITAMIN C 1 CAPLET PO (08:32)
[2024-03-28] MEDS: VITAMIN D3 (cholecalciferol) 50 MCG PO (08:32)
[2024-03-28] MEDS: DITROPAN 5 MG PO ×2 (08:33→21:33)
[2024-03-28] MEDS: FOLVITE 0.400000000000000022 MG PO (08:33)
[2024-03-28] MEDS: ZOLOFT 50 MG PO (08:33)
[2024-03-28] MEDS: LMX 4 1 APPLIC TOPICAL ×2 (08:37→21:33)
[2024-03-28] MEDS: ROXICODONE 5 MG PO (09:07)
[2024-03-28] MEDS: MIRALAX 17 GRAMS PO ×2 (09:08→21:33)
[2024-03-28] MEDS: SENNA SYRUP 17.6000000000000014 MG PO ×2 (09:08→21:32)
--- NOTE | 2024-03-28 11:11 | CM ---
Patient seen bedside.
S/P Femoral nail 03/27/24 for hip fracture.
Per patient independent with ambulation prior to admission without assistive devices.
Per patient she plans to return to [facility] post d/c.
PT/OT (P).
TC to Cheyanne at [facility] with update, updates sent via [employer].
Plan: return to [facility] when stable.
[facility]
Report# [phone]
Fax# [phone]
[2024-03-28] MEDS: ZOFRAN 4 MG IV (11:38)
[2024-03-28] MEDS: TORADOL 10 MG IV (11:44)
[2024-03-28] MEDS: COMPAZINE 5 MG IV (15:22)
[2024-03-28] MEDS: PEPCID 20 MG PO (17:40)
[2024-03-28] MEDS: LIPITOR 20 MG PO (17:40)
--- NOTE | 2024-03-28 19:18 | PTCARENOTE ---
Patient had not voided since being straight catheterized this AM at 0515. Bladder scanned patient at 1249 for 73 ml and again at [address] Garcia made aware. IVF normal saline is infusing at 100ml/hr. Dr. Garcia said to monitor bladder scans.
Bladder scanned again at 1819 for 142 ml.
--- NOTE | 2024-03-28 19:57 | W.PN.ORTHO ---
Today's Communication / Plan
-
83-year-old female postop day 1 status post short cephalomedullary nail for left intertrochanteric femur fracture
Weightbearing as tolerated left lower extremity
PT OT
Pain control
DVT prophylaxis: Recommend Lovenox x 28 days
Medical management per primary team
Plan: Follow-up outpatient 2 to 3 weeks repeat evaluation with planned removal of janel
Subjective
.
.:
Patient resting comfortably in bed this evening. Reports some discomfort left groin and thigh.
Vital Signs and Labs
.
Vital Signs and Labs:
Lab Results
03/28/24 04:59
03/28/24 04:59
Temp Pulse Resp BP Pulse Ox
99.1 F 94 16 93/52 90
03/28/24 19:19 03/28/24 19:19 03/28/24 19:19 03/28/24 19:19 03/28/24 19:19
Physical Exam
-
Musculoskeletal left lower extremity
Dressings without bloody drainage
Moderate swelling left thigh positive EHL, FHL, ankle dorsiflexion, plantarflexion
Sensation tact light touch in all dispositions distally
Cap refill
[2024-03-29] VITALS (11 sets, daily range): BP systolic 89–134; BP diastolic 42–78
[2024-03-29] MEDS: NSS 1000 IV (01:39)
--- NOTE | 2024-03-29 08:36 | W.PN.HOSP.TC ---
Today's Communication/Plan
-
see bold
Assessment / Plan
Assessment / Plan
HPI: 83-year-old female past medical history of CLL, normal pressure hydrocephalus, anxiety, depression, former alcohol use disorder, presenting from [facility] after slipping and falling in her room. Denies feeling weak or dizziness prior to fall.
She denies hitting her head. She fell onto her left side. She was unable to get up. She denies loss of consciousness, chest pain or shortness of breath. Cannot move her left leg due to pain in the left knee.
She sometimes ambulates with walker at baseline.
# Acute mildly displaced left intertrochanteric hip fracture
Appreciate orthopedic surgery input, s/p gamma nail 03/[address] Claire
Tylenol, Toradol, Dilaudid as needed for pain
PT/OT, laxatives
From [facility]
#Hypotension
Continue IV fluids, midodrine as needed
#Acute blood loss anemia due to surgery
Hemoglobin upon admission 11.7
Hemoglobin 6.7 today, transfused 2 units
#Acute urinary retention
Insert Ramirez
# CLL
Monitor
Normal pressure hydrocephalus
Anxiety/depression
-Continue sertraline
Alcohol use disorder
-Continue thiamine, folic acid
Hyperlipidemia
-Continue statin
Divalproex use
-Patient denies any history of bipolar, seizures or tremors, unclear why she takes
Overactive bladder
-Continue oxybutynin
DVT prophylaxis�SQ lovenox
Full code
Total time spent to see the patient on the floor, examine the patient, review data and lab results, discuss treatment plan with patient, nursing staff around 50 minutes.
Physical Exam
General: No acute distress
HEENT: Normocephalic, Atraumatic, EOMI, MMM
Respiratory: Clear to Auscultation bilaterally
Cardiac: Normal S1/S2, Regular Rate and Rhythm
GI: Soft, Nontender, Nondistended, Normal Bowel Sounds
Extremities: No Clubbing, Cyanosis
Left leg shortened and externally rotated
Neuro: Nonfocal/Grossly Intact
Psych: Calm, Cooperative
Derm: No Visible lesions
Anticipated Discharge: 24 - 48 hours
Subjective/Interval History
-
Date of Service: March 28, 2024
Patient continues to have urinary retention, requiring straight cath. No chest pain, no shortness of breath. No fever, no vomiting.
Objective Data
-
Labs:
Laboratory Results
03/28/24
04:59
WBC 9.1
Hgb 8.8 L
Hct 26.2 L
Plt Count 158
Sodium 136
Potassium 4.4
Chloride 103
Carbon Dioxide 26
BUN 19 H
Creatinine 0.6
Glucose 125 H
Calcium 8.6
Vital Signs:
Vital Signs
Temp Pulse Resp BP Pulse Ox
98.7 F 88 18 82/51 92
03/28/24 11:36 03/28/24 11:36 03/28/24 11:36 03/28/24 11:36 03/28/24 11:36
I&O
03/27/24 03/28/24 03/29/24
06:59 06:59 06:59
Intake Total 150 / 150
Output Total 850 / 850
Balance -700 / -700
[2024-03-29 09:13] LABS: Mean Corp Hgb Conc. 33.3 g/dL (33.0-37.0); Mean Corpuscular Hgb 30.2 pg (27.0-31.0); Mean Corpuscular Volume 90.5 fL (81.0-99.0); Mean Platelet Volume 10.9 fL (7.4-10.4); Platelet Count 148 10^3/uL (130-400); Red Blood Cell Count 2.22 10^6/uL (4.20-5.40); Red Cell Dist. Width 14.1 % (11.5-14.5); White Blood Cell Count 7.9 10^3/uL (4.8-10.8)
[2024-03-29 09:27] LABS: Hematocrit 20.1 % (37.0-47.0); Hemoglobin 6.7 g/dL (12.0-16.0)
[2024-03-29] MEDS: MIRALAX 17 GRAMS PO ×2 (09:27→20:08)
[2024-03-29] MEDS: LOVENOX 40 MG SC (09:29)
[2024-03-29] MEDS: SENNA SYRUP 17.6000000000000014 MG PO ×2 (09:29→20:08)
[2024-03-29] MEDS: ZOLOFT 50 MG PO (09:32)
[2024-03-29] MEDS: DEPAKOTE (12 HR RELEASE) 125 MG PO ×3 (09:33→21:40)
[2024-03-29] MEDS: TYLENOL 1000 MG PO ×3 (09:33→21:40)
[2024-03-29] MEDS: VITAMIN B1 100 MG PO (09:33)
[2024-03-29] MEDS: DITROPAN 5 MG PO ×2 (09:34→20:08)
[2024-03-29] MEDS: B COMPLEX w/VITAMIN C 1 CAPLET PO (09:36)
[2024-03-29] MEDS: FOLVITE 0.400000000000000022 MG PO (09:37)
[2024-03-29] MEDS: COLACE 100 MG PO ×2 (09:37→20:08)
[2024-03-29] MEDS: VITAMIN D3 (cholecalciferol) 50 MCG PO (09:37)
[2024-03-29] MEDS: OSCAL CAL 500 500 MG PO (09:38)
[2024-03-29] MEDS: LMX 4 1 APPLIC TOPICAL ×2 (09:39→20:09)
[2024-03-29] MEDS: ProAmatine 5 MG PO (09:39)
[2024-03-29 09:48] LABS: Blood Urea Nitrogen 25 mg/dl (7-17); Calcium 8.3 mg/dl (8.4-10.2); Carbon Dioxide 29 mmol/L (22-30); Chloride 106 mmol/L (98-107); Estimated Creatinine Clearance 53 ml/min; Glucose 87 mg/dl (70-99); Potassium 4.5 mmol/L (3.5-5.1); Sodium 137 mmol/L (135-145); eGFR > 60.00
--- NOTE | 2024-03-29 14:18 | CM ---
CM attempted to see patient however, per nursing bedside procedure in process. CM will attempt to return. Plan is for patient to return to [facility]. CM will continue to follow for discharge planning needs.
Plan; [facility]
--- NOTE | 2024-03-29 14:28 | PTCARENOTE ---
placed 16 fr Ramirez cath 10ml ballon d/t urinary retention. Blood transfusing without incident.
[2024-03-29] MEDS: LIPITOR 20 MG PO (17:41)
[2024-03-29] MEDS: PEPCID 20 MG PO (17:42)
--- NOTE | 2024-03-29 20:32 | PTCARENOTE ---
Received patient this nightshift with 1 unit PRBC infusing started on dayshi; infusion completed at 20:30 without incident, VSS, see documentation in [facility].
[2024-03-30] MEDS: ROXICODONE 10 MG PO (05:49)
[2024-03-30 07:35] VITALS: BP 120/68
--- NOTE | 2024-03-30 08:00 | W.PN.HOSP.TC ---
Addendum entered and electronically signed by Casey Garcia MD 03/30/24 14:31:
Correction, hemoglobin 9.1 today, increased from 6.7 status post 2 units of packed red blood cells on 03/29
Original Note:
Today's Communication/Plan
-
see bold
Assessment / Plan
Assessment / Plan
HPI: 83-year-old female past medical history of CLL, normal pressure hydrocephalus, anxiety, depression, former alcohol use disorder, presenting from [facility] after slipping and falling in her room. Denies feeling weak or dizziness prior to fall.
She denies hitting her head. She fell onto her left side. She was unable to get up. She denies loss of consciousness, chest pain or shortness of breath. Cannot move her left leg due to pain in the left knee.
She sometimes ambulates with walker at baseline.
# Acute mildly displaced left intertrochanteric hip fracture
Appreciate orthopedic surgery input, s/p gamma nail 03/[address] Claire
Tylenol, Toradol, Dilaudid as needed for pain
PT/OT, laxatives
From [facility]
#Hypotension
Resolved, cap IV fluids, midodrine as needed (last dose 03/29)
#Acute blood loss anemia due to surgery
Hemoglobin upon admission 11.7
Hemoglobin 6.7 today, transfused 2 units
#Acute urinary retention
Inserted Ramirez 03/29
# CLL
Monitor
Normal pressure hydrocephalus
Anxiety/depression
-Continue sertraline
Alcohol use disorder
-Continue thiamine, folic acid
Hyperlipidemia
-Continue statin
Divalproex use
-Patient denies any history of bipolar, seizures or tremors, unclear why she takes
Overactive bladder
-Continue oxybutynin
DVT prophylaxis�SQ lovenox
Full code
Total time spent to see the patient on the floor, examine the patient, review data and lab results, discuss treatment plan with patient, nursing staff around 35 minutes.
Physical Exam
General: Appears chronically debilitated, no acute distress
HEENT: Normocephalic, Atraumatic, EOMI, MMM
Respiratory: Clear to Auscultation bilaterally
Cardiac: Normal S1/S2, Regular Rate and Rhythm
GI: Soft, Nontender, Nondistended, Normal Bowel Sounds
Extremities: No Clubbing, Cyanosis
Left hip incision dressed, with some blood
Neuro: Nonfocal/Grossly Intact
Psych: Calm, Cooperative
Anticipated Discharge: 24 - 48 hours
Subjective/Interval History
-
Date of Service: March 30, 2024
Patient has had multiple bowel movements. She denies left hip pain. Denies weakness, denies shortness of breath. No fever, no vomiting.
Objective Data
-
Labs:
Laboratory Results
03/30/24
07:25
WBC Pending
Hgb Pending
Hct Pending
Plt Count Pending
Sodium Pending
Potassium Pending
Chloride Pending
Carbon Dioxide Pending
BUN Pending
Creatinine Pending
Glucose Pending
Calcium Pending
Vital Signs:
Vital Signs
Temp Pulse Resp BP Pulse Ox
98.7 F 83 16 130/67 90
03/29/24 23:55 03/29/24 23:55 03/29/24 23:55 03/29/24 23:55 03/29/24 23:55
I&O
03/29/24 03/30/24 03/31/24
06:59 06:59 06:59
Intake Total 2880 / 2880 1355 / 1355
Output Total 400 / 400 675 / 675
Balance 2480 / 2480 680 / 680
[2024-03-30 08:17] LABS: Hematocrit 27.7 % (37.0-47.0); Mean Corp Hgb Conc. 32.9 g/dL (33.0-37.0); Mean Corpuscular Hgb 28.3 pg (27.0-31.0); Mean Platelet Volume 11.3 fL (7.4-10.4); Platelet Count 146 10^3/uL (130-400); Red Blood Cell Count 3.22 10^6/uL (4.20-5.40); Red Cell Dist. Width 17.7 % (11.5-14.5); White Blood Cell Count 7.2 10^3/uL (4.8-10.8)
[2024-03-30 08:36] LABS: Hemoglobin 9.1 g/dL (12.0-16.0)
[2024-03-30 09:07] LABS: Blood Urea Nitrogen 23 mg/dl (7-17); Calcium 8.1 mg/dl (8.4-10.2); Carbon Dioxide 29 mmol/L (22-30); Chloride 106 mmol/L (98-107); Estimated Creatinine Clearance 59 ml/min; Glucose 85 mg/dl (70-99); Magnesium 1.8 mg/dl (1.6-2.3); Phosphorus 3.3 mg/dl (2.5-4.5); Potassium 4.8 mmol/L (3.5-5.1); Sodium 137 mmol/L (135-145); eGFR > 60.00
[2024-03-30] MEDS: COLACE PO ×2 (09:31→19:49)
[2024-03-30] MEDS: MIRALAX PO ×2 (09:32→19:50)
[2024-03-30] MEDS: SENNA SYRUP PO ×2 (09:32→19:50)
[2024-03-30] MEDS: DEPAKOTE (12 HR RELEASE) 125 MG PO ×3 (09:34→21:16)
[2024-03-30] MEDS: OSCAL CAL 500 500 MG PO (09:34)
[2024-03-30] MEDS: B COMPLEX w/VITAMIN C 1 CAPLET PO (09:35)
[2024-03-30] MEDS: VITAMIN D3 (cholecalciferol) 50 MCG PO (09:35)
[2024-03-30] MEDS: TYLENOL 1000 MG PO ×3 (09:35→21:15)
[2024-03-30] MEDS: VITAMIN B1 100 MG PO (09:35)
[2024-03-30] MEDS: ZOLOFT 50 MG PO (09:36)
[2024-03-30] MEDS: FOLVITE 0.400000000000000022 MG PO (09:36)
[2024-03-30] MEDS: DITROPAN 5 MG PO ×2 (09:36→19:51)
[2024-03-30] MEDS: LOVENOX 40 MG SC (09:36)
[2024-03-30] MEDS: LMX 4 1 APPLIC TOPICAL ×2 (09:37→21:44)
[2024-03-30 13:39] VITALS: BP 122/65; BP 163/81; PULSE 80; O2SAT 92
[2024-03-30 14:20] VITALS: BP 122/67; BP 163/81; PULSE 81; O2SAT 92
--- NOTE | 2024-03-30 14:56 | PTCARENOTE ---
POA Marco and here. They were trying to encourage her to get OOB. explained PT/OT sat on side bed x10min pt would not stand, stated fear of falling, gait belt in use, multiple people in room. Use of Gustavo pad on chair so pt did not have to
stand to get back in. Family would like to be present.
[2024-03-30 15:32] VITALS: BP 124/50
[2024-03-30] MEDS: LIPITOR 20 MG PO (17:01)
[2024-03-30] MEDS: ROXICODONE 5 MG PO (17:02)
[2024-03-30] MEDS: PEPCID 20 MG PO (17:02)
[2024-03-30 23:56] VITALS: BP 126/63
[2024-03-31 07:35] VITALS: BP 142/78
--- NOTE | 2024-03-31 08:35 | W.PN.HOSP.TC ---
Today's Communication/Plan
-
Discharge to [place] tomorrow if hemoglobin remains stable
Assessment / Plan
Assessment / Plan
HPI: 83-year-old female past medical history of CLL, normal pressure hydrocephalus, anxiety, depression, former alcohol use disorder, presenting from [facility] after slipping and falling in her room. Denies feeling weak or dizziness prior to fall.
She denies hitting her head. She fell onto her left side. She was unable to get up. She denies loss of consciousness, chest pain or shortness of breath. Cannot move her left leg due to pain in the left knee.
She sometimes ambulates with walker at baseline.
# Acute mildly displaced left intertrochanteric hip fracture
Appreciate orthopedic surgery input, s/p gamma nail 03/[address] Claire
Tylenol, Toradol, Dilaudid as needed for pain
PT/OT, laxatives
From [facility]
Discharge to [place] tomorrow if hemoglobin remains stable
#Hypotension
Resolved, cap IV fluids, midodrine as needed (last dose 03/29)
#Acute blood loss anemia due to surgery
Hemoglobin upon admission 11.7
Hemoglobin 9.1 today, was 9.1 yesterday, improved from 6.7 status post 2 units packed red blood cells on 03/29
#Acute urinary retention
Inserted Ramirez 03/29
Void trial tomorrow 04/01
# CLL
Monitor
Normal pressure hydrocephalus
Anxiety/depression
-Continue sertraline
Alcohol use disorder
-Continue thiamine, folic acid
Hyperlipidemia
-Continue statin
Divalproex use
-Patient denies any history of bipolar, seizures or tremors, unclear why she takes
Overactive bladder
-Continue oxybutynin
DVT prophylaxis�SQ lovenox
Full code
Total time spent to see the patient on the floor, examine the patient, review data and lab results, discuss treatment plan with patient, nursing staff around 35 minutes.
Physical Exam
General: Appears chronically debilitated, no acute distress
HEENT: Normocephalic, Atraumatic, EOMI, MMM
Respiratory: Clear to Auscultation bilaterally
Cardiac: Normal S1/S2, Regular Rate and Rhythm
GI: Soft, Nontender, Nondistended, Normal Bowel Sounds
Extremities: No Clubbing, Cyanosis
Left hip incision dressed, with some blood
Neuro: Nonfocal/Grossly Intact
Psych: Calm, Cooperative
Anticipated Discharge: Within 24 hours
Subjective/Interval History
-
Date of Service: March 31, 2024
Patient reports feeling well. Denies chest pain, shortness of breath, palpitations.
Objective Data
-
Labs:
Laboratory Results
03/31/24
08:07
WBC Pending
Hgb Pending
Hct Pending
Plt Count Pending
Sodium Pending
Potassium Pending
Chloride Pending
Carbon Dioxide Pending
BUN Pending
Creatinine Pending
Glucose Pending
Calcium Pending
Vital Signs:
Vital Signs
Temp Pulse Resp BP Pulse Ox
98.2 F 79 16 142/78 95
03/31/24 07:35 03/31/24 07:35 03/31/24 07:35 03/31/24 07:35 03/31/24 07:35
I&O
03/30/24 03/31/24 04/01/24
06:59 06:59 06:59
Intake Total 1355 / 1355 1080 / 1080
Output Total 675 / 675 1075 / 1075
Balance 680 / 680 5 /
[2024-03-31 08:41] LABS: Hematocrit 26.9 % (37.0-47.0); Hemoglobin 9.1 g/dL (12.0-16.0); Mean Corp Hgb Conc. 33.8 g/dL (33.0-37.0); Mean Corpuscular Hgb 28.5 pg (27.0-31.0); Mean Corpuscular Volume 84.3 fL (81.0-99.0); Mean Platelet Volume 10.2 fL (7.4-10.4); Platelet Count 175 10^3/uL (130-400); Red Blood Cell Count 3.19 10^6/uL (4.20-5.40); Red Cell Dist. Width 17.5 % (11.5-14.5); White Blood Cell Count 6.6 10^3/uL (4.8-10.8)
[2024-03-31 09:03] LABS: Blood Urea Nitrogen 17 mg/dl (7-17); Calcium 8.5 mg/dl (8.4-10.2); Carbon Dioxide 31 mmol/L (22-30); Chloride 102 mmol/L (98-107); Estimated Creatinine Clearance 68 ml/min; Glucose 110 mg/dl (70-99); Magnesium 1.7 mg/dl (1.6-2.3); Potassium 4.7 mmol/L (3.5-5.1); Sodium 137 mmol/L (135-145); eGFR > 60.00
[2024-03-31] MEDS: MIRALAX 17 GRAMS PO (09:24)
[2024-03-31] MEDS: VITAMIN D3 (cholecalciferol) 50 MCG PO (09:25)
[2024-03-31] MEDS: DITROPAN 5 MG PO ×2 (09:25→20:20)
[2024-03-31] MEDS: TYLENOL 1000 MG PO ×3 (09:25→22:33)
[2024-03-31] MEDS: B COMPLEX w/VITAMIN C 1 CAPLET PO (09:25)
[2024-03-31] MEDS: ZOLOFT 50 MG PO (09:25)
[2024-03-31] MEDS: VITAMIN B1 100 MG PO (09:26)
[2024-03-31] MEDS: ROXICODONE 5 MG PO (09:26)
[2024-03-31] MEDS: COLACE 100 MG PO ×2 (09:27→20:20)
[2024-03-31] MEDS: LMX 4 1 APPLIC TOPICAL ×2 (09:27→20:20)
[2024-03-31] MEDS: FOLVITE 0.400000000000000022 MG PO (09:28)
[2024-03-31] MEDS: DEPAKOTE (12 HR RELEASE) 125 MG PO ×3 (09:28→22:33)
[2024-03-31] MEDS: LOVENOX 40 MG SC (09:28)
[2024-03-31] MEDS: SENNA SYRUP PO (09:29)
[2024-03-31] MEDS: OSCAL CAL 500 500 MG PO (09:29)
[2024-03-31 11:50] VITALS: BP 120/68; PULSE 79; O2SAT 91
--- NOTE | 2024-03-31 15:15 | PTCARENOTE ---
Pt to chair wit PT/nurse heavy to complete assist in chair x3 hr. Pt can bare wt, but is stating complete fear of standing that she will fall and refusing to follow directions to stand continued to provided reassurance/comfort pt pushes backwards,
but were able to side step her a couple feet to chair. Did have to use Gustavo to return to bed, providing reassurance. Pt will be discharge to [facility] tomorrow.
[2024-03-31 15:45] VITALS: BP 130/72
[2024-03-31] MEDS: LIPITOR 20 MG PO (17:05)
[2024-03-31] MEDS: PEPCID 20 MG PO (17:05)
[2024-03-31 23:09] VITALS: BP 137/83
[2024-04-01 07:44] VITALS: BP 111/66
[2024-04-01 08:09] LABS: Hematocrit 27.1 % (37.0-47.0); Hemoglobin 9.1 g/dL (12.0-16.0); Mean Corp Hgb Conc. 33.6 g/dL (33.0-37.0); Mean Corpuscular Hgb 28.8 pg (27.0-31.0); Mean Corpuscular Volume 85.8 fL (81.0-99.0); Platelet Count 188 10^3/uL (130-400); Red Blood Cell Count 3.16 10^6/uL (4.20-5.40); White Blood Cell Count 5.1 10^3/uL (4.8-10.8)
[2024-04-01 08:47] LABS: Blood Urea Nitrogen 16 mg/dl (7-17); Calcium 8.7 mg/dl (8.4-10.2); Carbon Dioxide 33 mmol/L (22-30); Chloride 101 mmol/L (98-107); Estimated Creatinine Clearance 59 ml/min; Glucose 96 mg/dl (70-99); Potassium 4.8 mmol/L (3.5-5.1); Sodium 136 mmol/L (135-145); eGFR > 60.00
--- NOTE | 2024-04-01 08:58 | W.PN.HOSP.TC ---
Today's Communication/Plan
-
Discharge back to [facility] today
Assessment / Plan
Assessment / Plan
HPI: 83-year-old female past medical history of CLL, normal pressure hydrocephalus, anxiety, depression, former alcohol use disorder, presenting from [facility] after slipping and falling in her room. Denies feeling weak or dizziness prior to fall.
She denies hitting her head. She fell onto her left side. She was unable to get up. She denies loss of consciousness, chest pain or shortness of breath. Cannot move her left leg due to pain in the left knee.
She sometimes ambulates with walker at baseline.
# Acute mildly displaced left intertrochanteric hip fracture
Appreciate orthopedic surgery input, s/p gamma nail 03/[address] Claire
Tylenol, Toradol, Dilaudid as needed for pain
PT/OT, laxatives
From [facility]
Medically stable for discharge to her [facility] today, follow-up with orthopedic surgery in the office
Per orthopedic surgery, continue subcu Lovenox for 21 days for DVT prophylaxis
#Hypotension
Resolved, cap IV fluids, midodrine as needed (last dose 03/29)
#Acute blood loss anemia due to surgery
Hemoglobin upon admission 11.7
Hemoglobin 9.1 today, was 9.1 yesterday, was 9.1, improved from 6.7 status post 2 units packed red blood cells on 03/29
#Acute urinary retention
Inserted Ramirez 03/29
Ramirez removed on 04/01, she failed her void trial
Ramirez reinserted, discharged with Ramirez. She can have another void trial in 1 week
Follow-up with urology in the office
Permanently discontinued oxybutynin
# CLL
Monitor
Normal pressure hydrocephalus
Anxiety/depression
-Continue sertraline
Alcohol use disorder
-Continue thiamine, folic acid
Hyperlipidemia
-Continue statin
Divalproex use
-Patient denies any history of bipolar, seizures or tremors, unclear why she takes
Overactive bladder
-Stop oxybutynin due to urinary retention
DVT prophylaxis�SQ lovenox
Full code
Physical Exam
General: Appears chronically debilitated, no acute distress
HEENT: Normocephalic, Atraumatic, EOMI, MMM
Respiratory: Clear to Auscultation bilaterally
Cardiac: Normal S1/S2, Regular Rate and Rhythm
GI: Soft, Nontender, Nondistended, Normal Bowel Sounds
Extremities: No Clubbing, Cyanosis
Left hip incision dressed, with some blood
Neuro: Nonfocal/Grossly Intact
Psych: Calm, Cooperative
Anticipated Discharge: Today
Subjective/Interval History
-
Date of Service: April 01, 2024
Denies hip pain. Denies chest pain, shortness of breath, palpitations. No fever, no vomiting.
Objective Data
-
Labs:
Laboratory Results
04/01/24
06:54
WBC 5.1
Hgb 9.1 L
Hct 27.1 L
Plt Count 188
Sodium 136
Potassium 4.8
Chloride 101
Carbon Dioxide 33 H
BUN 16
Creatinine 0.8
Glucose 96
Calcium 8.7
Vital Signs:
Vital Signs
Temp Pulse Resp BP Pulse Ox
98.6 F 72 18 111/66 95
04/01/24 07:44 04/01/24 07:44 04/01/24 07:44 04/01/24 07:44 04/01/24 07:44
I&O
03/31/24 04/01/24 04/02/24
06:59 06:59 06:59
Intake Total 1080 / 1080 960 / 960
Output Total 1075 / 1075 1810 / 1810
Balance 5 / 5 -850 / -850
[2024-04-01] MEDS: TYLENOL 1000 MG PO (09:27)
[2024-04-01] MEDS: B COMPLEX w/VITAMIN C 1 CAPLET PO (09:27)
[2024-04-01] MEDS: VITAMIN B1 100 MG PO (09:27)
[2024-04-01] MEDS: OSCAL CAL 500 500 MG PO (09:27)
[2024-04-01] MEDS: ZOLOFT 50 MG PO (09:28)
[2024-04-01] MEDS: DITROPAN 5 MG PO (09:28)
[2024-04-01] MEDS: COLACE 100 MG PO (09:28)
[2024-04-01] MEDS: DEPAKOTE (12 HR RELEASE) 125 MG PO (09:28)
[2024-04-01] MEDS: VITAMIN D3 (cholecalciferol) 50 MCG PO (09:28)
[2024-04-01] MEDS: FOLVITE 0.400000000000000022 MG PO (09:28)
[2024-04-01] MEDS: LOVENOX 40 MG SC (09:29)
[2024-04-01] MEDS: LMX 4 1 APPLIC TOPICAL (09:29)
[2024-04-01] MEDS: MIRALAX 17 GRAMS PO (09:30)
--- NOTE | 2024-04-01 10:46 | CM ---
Addendum entered by Maria G Juarez 04/01/24 11:38:
Ambulance rescheduled to 1400 today
Addendum entered by Maria G Juarez 04/01/24 11:23:
Patient unable to void; rescheduling ambulance poultry picking machine tender time
Original Note:
Met with patient at bedside to discuss Discharge Plan
IMM benefit explained; form signed @ 1044
Plan: Return to [facility] via ambulance
Ambulance poultry picking machine tender scheduled for 12 NOON
Report # [phone]
[2024-04-01 11:48] VITALS: BP 120/64; PULSE 93; O2SAT 95
[2024-04-01] MEDS: FLOMAX 0.400000000000000022 MG PO (13:47)
--- NOTE | 2024-04-01 18:30 | W.DCSUMMARY ---
Discharge Summary
Discharge Data
Date of Admission: 03/26/24
Date of Discharge: 04/01/24
-
Pending Results: No
Hospital Course
Discharge diagnosis:
Acute mildly displaced left intertrochanteric hip fracture
Mild hypotension
Acute blood loss anemia
Acute urinary retention
History of overactive bladder
Chronic lymphocytic leukemia
Normal pressure hydrocephalus
Anxiety/depression
History of alcohol use disorder
Hyperlipidemia
Consults: Orthopedic surgery
Procedures:
03/27/2024 left gamma nail placement
Hospital course:
83-year-old female with a past medical history of CLL, normal pressure hydrocephalus, anxiety, depression, and former alcohol use disorder was admitted for acute left hip fracture. Patient was seen in conjunction with orthopedic surgery, and
underwent left gamma nail placement on 03/27/[address] Claire.
Patient's hospital course was complicated by mild hypotension. She was treated with IV fluids, and did receive 1 dose of midodrine.
Patient also had acute blood loss anemia secondary to surgery. Her hemoglobin was 11.7 upon admission, dropped to 6.7. She was transfused 2 units of packed red blood cells on 03/29/2024. Her hemoglobin improved to 9.1, and remained stable at 9.1 on
the day of discharge.
Patient also had acute urinary retention. She had a Ramirez inserted on 03/29. She failed her void trial on 04/01. She had a Ramirez reinserted on the day of discharge. She can have a repeat void trial in 1 week. She can also follow-up with urology in
the office in 1-2 weeks.
Patient's multiple medical conditions have been optimized. She is medically stable for discharge to short-term rehab. She can follow-up with orthopedic surgery in the office in 2 weeks. Orthopedic surgery recommends subcu Lovenox 40 mg daily for
28 days through 04/23/2024 for DVT prophylaxis. She also needs to follow-up with her primary care doctor in 1 week.
Disposition: [facility]
Discharge planning: Required 40 minutes
Discharge Plan
-
Patient Disposition: Jail/SNF
Discharge Diagnosis/Procedures: Acute left hip fracture, acute blood loss anemia, constipation, acute urinary retention fequiring Ramirez placement
Condition: Fair
Diet: Regular
Activity: As tolerated
Activity Restrictions/Additional Instructions:
You have acute urinary retention. Your Ramirez was removed on the day of discharge, but you could not urinate.
Ramirez was reinserted on the day of discharge. Nursing facility can remove your Ramirez on 04/08/2024 for void trial.
Please follow-up with urology in the office, call for an appointment.
Please take lovenox 40 mg sq qpm for 4 weeks through 04/23/2024 to prevent blood clots.
Follow-up with orthopedic surgery in the office in 2 weeks, call for an appointment.
Referrals:
Travis Zapien, [Family Provider] - in two to three days
Galen Cee MD [Active] - in one week
Jet Claire MD [Active] - in two weeks
Prescriptions:
New
polyethylene glycol 3350 [HealthyLax] 17 gram Powder In Packet
17 g PO DAILY Qty: 0 0RF
acetaminophen [Tylenol Extra Strength] 500 mg Tablet
1,000 mg PO TID Qty: 0 0RF
oxycodone 5 mg Tablet
5 mg PO Q4HPRN PRN (Reason: mild pain) Qty: 3 0RF
enoxaparin 40 mg/0.4 mL Syringe
40 mg SC DAILY 22 Days Qty: 0 0RF
tamsulosin 0.4 mg Capsule
0.4 mg PO DAILY Qty: 0 0RF
Continued
sertraline 50 mg Tablet
50 mg PO DAILY
vitamin B complex Tablet Extended Release
1 tab PO DAILY
atorvastatin 20 mg tablet
20 mg PO QPM
ondansetron HCl 4 mg tablet
4 mg PO Q8H PRN (Reason: nausea)
lidocaine 4 % Cream
1 applic TOPICAL Q8H PRN (Reason: knee pain)
lidocaine 4 % Cream
1 applic TOPICAL BID
thiamine HCl (vitamin B1) 100 mg Tablet
100 mg PO DAILY
folic acid 400 mcg Tablet
0.4 mg PO DAILY
calcium carbonate [Calcium 600] 600 mg calcium (1,500 mg) Tablet
600 mg PO DAILY
famotidine 20 mg Tablet
20 mg PO QPM
magnesium hydroxide [Milk of Magnesia] 400 mg/5 mL Suspension
30 ml PO DAILY PRN (Reason: if no bm in 3 days)
bisacodyl [Dulcolax (bisacodyl)] 10 mg Suppository
10 mg DC DAILY PRN (Reason: if no bm x 3 days)
divalproex 125 mg tablet,delayed release (DR/EC)
125 mg PO TID
Fleet Enema 19-7 gram/118 mL Enema
118 ml DC DAILY PRN (Reason: if suppository is not effective for 24hrs)
calcium carbonate 500 mg calcium (1,250 mg) Tablet,Chewable
1,000 mg PO Q8H PRN (Reason: indigestion)
Biofreeze (menthol) 4 % Gel
1 applic TOPICAL BID
cholecalciferol (vitamin D3) 62.5 mcg (2,500 unit) Capsule
62.5 mcg PO DAILY
Discontinued
acetaminophen 325 mg Tablet
650 mg PO Q6H PRN (Reason: mild pain/temp>100.5)
acetaminophen 325 mg Tablet
650 mg PO DAILY
ibuprofen 800 mg Tablet
800 mg PO Q6H PRN (Reason: mild pain)
naproxen 250 mg tablet
125 mg PO BID
oxybutynin chloride 5 mg tablet
5 mg PO BID
Discharge Orders:
Discharge Patient (As Directed); Ordered 04/01/24
Ordered By: Casey Garcia
Discharge Date and Time
Discharge Date/Time: 04/01/24 14:15
Print Language: ROMANSH
== END 2024-04-01 14:15 | DRG 481 ==
LOC: 2 SOUTH 23:53
PROVIDERS: Registered Nurse; ADMITTING PHYSICIAN Hospitalist; ATTENDING PHYSICIAN Family Medicine; CONSULT PHYSICIAN Orthopaedic Surgery; EMERGENCY PHYSICIAN Emergency Medicine; FAMILY PHYSICIAN Internal Medicine
PROC: 0QS706Z Reposition Left Upper Femur with Intramedullary Internal Fixation Device, Open Approach (ICD-10-PCS; 2024-03-27)
PROC: 30233N1 Transfusion of Nonautologous Red Blood Cells into Peripheral Vein, Percutaneous Approach (ICD-10-PCS; 2024-03-29)
DX: S72.142A Displaced intertrochanteric fracture of left femur, initial encounter for closed fracture (principal); C91.10 Chronic lymphocytic leukemia of B-cell type not having achieved remission; G91.2 (Idiopathic) normal pressure hydrocephalus; D62 Acute posthemorrhagic anemia; F41.9 Anxiety disorder, unspecified; F10.10 Alcohol abuse, uncomplicated; E78.00 Pure hypercholesterolemia, unspecified; I95.81 Postprocedural hypotension; I10 Essential (primary) hypertension; N32.81 Overactive bladder; R33.9 Retention of urine, unspecified; K21.9 Gastro-esophageal reflux disease without esophagitis; K59.00 Constipation, unspecified; F31.9 Bipolar disorder, unspecified; W01.0XXA Fall on same level from slipping, tripping and stumbling without subsequent striking against object, initial encounter; Y93.01 Activity, walking, marching and hiking; Y92.122 Bedroom in nursing home as the place of occurrence of the external cause; Z87.891 Personal history of nicotine dependence; Z91.048 Other nonmedicinal substance allergy status
CPT/HCPCS: 73502; 73564; 76000; 80048; 80053; 81003; 81015; 83735; 84100; 85025; 85027; 86850; 86900; 86901; 86920; 97110; 97163; 97167; 97530; 97535; C1713; C1769; P9016

== ENCOUNTER 2024-07-02 09:52 | Inpatient (IN) | payer MEDICARE, OTHER, SELFPAY ==
[2024-07-01] VITALS (8 sets, daily range): BP systolic 104–139; BP diastolic 63–107; BMI 29.4
[2024-07-01 15:04] LABS: % Basophils 0.6 % (0-2); % Eosinophils 2.4 % (0-6); % Immature Granulocytes 2.3 % (0-0.5); % Lymphocytes 18.3 % (20.5-51.1); % Monocytes 8.7 % (1.7-9.3); % Neutrophils 67.7 % (42.2-75.2); Absolute Basophils 0.1 10^3/uL (0-0.2); Absolute Eosinophils 0.2 10^3/uL (0-0.7); Absolute Immature Granulocytes 0.2 10^3/uL (0-0.05); Absolute Lymphocytes 1.7 10^3/uL (1.2-3.4); Absolute Monocytes 0.8 10^3/uL (0.1-0.6); Absolute Neutrophils 6.3 10^3/uL (1.4-6.5); Hematocrit 31.8 % (37.0-47.0); Hemoglobin 10.4 g/dL (12.0-16.0); Mean Corp Hgb Conc. 32.7 g/dL (33.0-37.0); Mean Corpuscular Hgb 30.2 pg (27.0-31.0); Mean Corpuscular Volume 92.4 fL (81.0-99.0); Nucleated Red Blood Cells % 0 %; Platelet Count 423 10^3/uL (130-400); Red Blood Cell Count 3.44 10^6/uL (4.20-5.40); Red Cell Dist. Width 14.1 % (11.5-14.5); White Blood Cell Count 9.3 10^3/uL (4.8-10.8)
[2024-07-01 15:12] LABS: ALT (SGPT) 12 U/L (0-35); AST (SGOT) 24 U/L (14-36); Albumin 3.2 g/dl (3.5-5.0); Alkaline Phosphatase 81 U/L (38-126); Blood Urea Nitrogen 23 mg/dl (7-17); Calcium 9.6 mg/dl (8.4-10.2); Carbon Dioxide 26 mmol/L (22-30); Chloride 99 mmol/L (98-107); Glucose 124 mg/dl (70-99); Potassium 4.5 mmol/L (3.5-5.1); Sodium 139 mmol/L (135-145); Total Bilirubin 0.5 mg/dl (0.2-1.3); Total Protein 5.4 g/dl (6.3-8.2); eGFR > 60.00
--- NOTE | 2024-07-01 15:19 | ED.GENMED ---
History of Present Illness
General
Chief Complaint: Rectal Bleeding
Time Seen by Provider: 07/01/24 14:41
History of Present Illness
History of Present Illness:
84yoF hx afib on eliquis, HTN, HLD presenting with dark stools starting today. Pt denies any abdominal pain, shortness of breath, or dizziness. POA at bedside states patient appears more pale than normal.
Past History
Past History
ED Past Medical History: Cancer, Psychiatric (anxiety. Has 86/90 Xanax in a pill bottle from 07/22/14 her friend brought. He will hold on to them until she is recovered from this incident.) and Other (Alcohol abuse); Negative Fibromyalgia, HTN,
Hypercholesterolemia or IDDM
ED Past Surgical History: None
Social History
Tobacco: Former smoker
Alcohol: Former
Drug: None
Personal: Single
Living: custodial
Employment: Not employed
Family History
Family History: Hypertension; Negative Early CAD
Phy Exam
Physical Exam
Physical Exam:
General: Alert, no acute distress
Head: NCAT
Eyes: clear conjunctiva
Neck: supple
Cardiac: tachycardic, regular rhythm, no murmur
Lungs: clear to auscultation bilaterally. No wheezes, rales, or rhonchi. Speaking full unlabored sentences. No respiratory distress.
Abdomen: soft, nondistended nontender. No rebound or guarding.
MSK: no lower extremity edema bilaterally. No deformity
Rectal: dark stool, guaiac positive
Skin: warm, dry
Neuro: Alert and oriented to person and place only. no focal deficits
Course
Orders/Labs/Results
Orders:
Orders
07/01/24 14:48
CMP [Comprehensive Metabolic Panel] Urgent
Complete Blood Count/With Diff Urgent
07/01/24 15:18
Type+Screen Urgent
Protime/PTT Urgent
Pantoprazole [Protonix IV] 80 mg IV NOW STA
07/01/24 15:23
0.9% Sodium Chloride 250 ml [Nss] 250 ml IV BOLUS
Abnormal Lab Results
07/01/24
14:48
RBC 3.44 L 10^6/uL
(4.20-5.40)
Hgb 10.4 L g/dL
(12.0-16.0)
Hct 31.8 L %
(37.0-47.0)
MCHC 32.7 L g/dL
(33.0-37.0)
Plt Count 423 H 10^3/uL
(130-400)
Abs Immat Gran (auto) 0.2 H 10^3/uL
(0-0.05)
Absolute Monos (auto) 0.8 H 10^3/uL
(0.1-0.6)
Immature Gran % 2.3 H %
(0-0.5)
Lymphocytes % 18.3 L %
(20.5-51.1)
BUN 23 H mg/dl
(7-17)
Glucose 124 H mg/dl
(70-99)
Total Protein 5.4 L g/dl
(6.3-8.2)
Albumin 3.2 L g/dl
(3.5-5.0)
07/01/24 14:48
07/01/24 14:48
Vital Signs
Initial and Last Documented VS:
Initial Vital Signs
Temp Pulse Resp BP Pulse Ox
97.7 F 107 16 139/107 95
07/01/24 14:38 07/01/24 14:38 07/01/24 14:38 07/01/24 14:38 07/01/24 14:38
Last Documented Vital Signs
Temp Pulse Resp BP Pulse Ox
97.7 F 104 20 112/76 94
07/01/24 14:38 07/01/24 15:00 07/01/24 15:00 07/01/24 14:49 07/01/24 15:00
MDM/Problems Addressed
Differential Diagnosis Includes:
GI bleed, anemia
MDM/Problems Addressed:
84yoF hx afib on eliquis presenting with dark stools starting today. Guaiac positive. Pt tachycardic to low 100s. Hemoglobin 10.4 (baseline 11). Concern for GI bleed. Will start on protonix, admit for GI consultation. Discussed with hospitalist for
admission
*Critical Care Note
Total Time (30-74mins, 75-104mins- exclusive of procedures): Not Applicable
ED Attending Note
-
Portions of this chart may have been created with voice recognition software.� Occasional wrong word or��sound alike� substitutions may have occurred due to the inherent limitations of voice recognition software.
Discharge Plan
Departure
Patient Disposition: Admit
Date of Disposition: 07/01/24
Time of Disposition: 15:28
Presentation/result/management discussed w/ accepting MD/DO: Hospitalist
Discharge Problem:
Acute GI bleeding
Prescriptions:
No Action
sertraline 50 mg Tablet
75 mg PO DAILY
atorvastatin 20 mg tablet
20 mg PO QPM
ondansetron HCl 4 mg tablet
4 mg PO Q8HPRN PRN (Reason: nausea)
lidocaine 4 % Cream
1 applic TOPICAL Q8HPRN PRN (Reason: knee pain)
lidocaine 4 % Cream
1 applic TOPICAL BID
thiamine HCl (vitamin B1) 100 mg Tablet
100 mg PO DAILY
folic acid 400 mcg Tablet
0.4 mg PO DAILY
calcium carbonate [Calcium 600] 600 mg calcium (1,500 mg) Tablet
600 mg PO DAILY
famotidine 20 mg Tablet
20 mg PO QPM
magnesium hydroxide [Milk of Magnesia] 400 mg/5 mL Suspension
30 ml PO DAILYPRN PRN (Reason: if no bm in 3 days)
bisacodyl [Dulcolax (bisacodyl)] 10 mg Suppository
[address] DAILYPRN PRN (Reason: if no bm x 3 days)
divalproex 125 mg tablet,delayed release (DR/EC)
125 mg PO TID
Fleet Enema 19-7 gram/118 mL Enema
[address] DAILYPRN PRN (Reason: if suppository is not effective )
calcium carbonate 500 mg calcium (1,250 mg) Tablet,Chewable
1,000 mg PO Q8HPRN PRN (Reason: indigestion)
Biofreeze (menthol) 4 % Gel
1 applic TOPICAL BID
cholecalciferol (vitamin D3) 62.5 mcg (2,500 unit) Capsule
62.5 mcg PO DAILY
polyethylene glycol 3350 [HealthyLax] 17 gram Powder In Packet
17 g PO DAILY Qty: 0 0RF
acetaminophen [Tylenol Extra Strength] 500 mg Tablet
1,000 mg PO TID Qty: 0 0RF
tamsulosin 0.4 mg Capsule
0.4 mg PO DAILY Qty: 0 0RF
acetaminophen [Tylenol] 325 mg Tablet
650 mg PO Q6HPRN PRN (Reason: mild pain)
ondansetron HCl [Zofran] 4 mg Tablet
4 mg PO AC
naproxen 250 mg Tablet
125 mg PO BID
ferrous sulfate 325 mg (65 mg iron) Tablet
325 mg PO DAILY
ibuprofen [Advil] 200 mg Tablet
800 mg PO Q6HPRN PRN (Reason: mild pain-0-3-)
vitamin B complex [B Complete] Tablet
1 tab PO DAILY
oxybutynin chloride 5 mg Tablet
5 mg PO BID
mirtazapine 7.5 mg Tablet
7.5 mg PO HS
Eliquis 5 mg Tablet
5 mg PO BID
Referrals:
Travis Zapien, DO [Family Provider] -
Interventions
Interventions:
*Risk Screen - Suicide Last Done: 07/01/24 14:38
*General Assessment Last Done: 07/01/24 14:38
*Neglect/Abuse Screening Last Done: 07/01/24 14:38
ED- Fall Risk Assessment Last Done: 07/01/24 14:38
*ED COVID-19 Vaccine History Last Done: 07/01/24 14:38
OD-Dhiplg-Lsrliaqyrn Assessment Last Done: 07/01/24 15:01
ED- Cardiac Assessment Last Done: 07/01/24 15:01
ED- Pulmonary Assessment Last Done: 07/01/24 14:38
Discharge Date and Time
Print Language: MARTINIQUAIS
--- NOTE | 2024-07-01 15:36 | HPS.HSE ---
Family Physician
-
Family Physician: Travis Zapien, DO
Chief Complaint
-
Dark stool today
History of Present Illness
84-year-old female from [facility] complaining of dark stools today. She denies abdominal pain, nausea, vomiting, diarrhea, shortness breath, cough, chest pain, palpitations, fever, chills, urinary symptoms. She has been refusing
PT/OT/any therapy x 4 months after her right hip surgery. It appears she was placed on Lovenox on discharge which was possibly converted to Eliquis 5 mg twice daily. It also appears she is on naproxen 125 mg twice daily and Motrin 800 mg p.o.
every 6 hours as needed for pain. Patient should not be on this, nation of medication
She has past medical history CLL, NPH, anxiety, depression, former alcohol use, HLD, overactive bladder, Hx urinary retention March 2024, chronic bedbound status since March 2024 due to refusal to participate with PT/OT
Medical History
Past Medical History
Past Medical History: Reports Other
Additional Past Medical History:
CLL, normal pressure hydrocephalus, anxiety, depression, former alcohol use disorder
Past Surgical History: Reports Other
Additional Past Surgical History:
Status post left intertrochanteric hip fracture gamma nail repair 03/27/[address] Claire
Social History
Tobacco: Non-smoker
Alcohol: Former (Former alcoholic stopped March 2018)
Drug: None
Personal: Single
Living: Group Home ([facility])
Employment: Retired
Family History
Family History: Not pertinent
Allergies / Home Medications
Allergies reflects when Allergies were last updated in [employer].
Home Medications with original date entered in [employer]
Allergy/Medication List:
Allergies
Allergy/AdvReac Type Severity Reaction Status Date / Time
adhesive tape [Adhesive Tape] Allergy 'burned Verified 03/27/24 16:27
skin'
Home Medications
sertraline 50 mg tablet 75 mg PO DAILY 04/16/15
atorvastatin 20 mg tablet 20 mg PO QPM 03/26/24
bisacodyl 10 mg rectal suppository (Dulcolax (bisacodyl)) 10 mg WI DAILYPRN PRN if no bm x 3 days 03/26/24
calcium carbonate 1,000 mg PO Q8HPRN PRN indigestion 03/26/24
calcium carbonate (Calcium 600) 600 mg PO DAILY 03/26/24
cholecalciferol (vitamin D3) 62.5 mcg (2,500 unit) capsule 62.5 mcg PO DAILY 03/26/24
divalproex 125 mg tablet,delayed release 125 mg PO TID 03/26/24
famotidine 20 mg tablet 20 mg PO QPM 03/26/24
folic acid 400 mcg tablet 0.4 mg PO DAILY 03/26/24
lidocaine 4 % topical cream 1 applic topical BID knee pain 03/26/24
lidocaine 4 % topical cream 1 applic topical Q8HPRN PRN knee pain 03/26/24
magnesium hydroxide 400 mg/5 mL oral suspension (Milk of Magnesia) 30 ml PO DAILYPRN PRN if no bm in 3 days 03/26/24
menthol 4 % topical gel (Biofreeze (menthol)) 1 applic topical BID both knees 03/26/24
ondansetron HCl 4 mg tablet 4 mg PO Q8HPRN PRN nausea 03/26/24
sodium phosphates 19 gram-7 gram/118 mL enema (Fleet Enema) 118 ml WI DAILYPRN PRN if suppository is not effective 03/26/24
thiamine HCl (vitamin B1) 100 mg tablet 100 mg PO DAILY 03/26/24
acetaminophen 500 mg tablet (Tylenol Extra Strength) 1,000 mg (2 x 500 mg) PO TID #0 tabs 04/01/24
polyethylene glycol 3350 17 gram oral powder packet (HealthyLax) 17 g PO DAILY #0 ea 04/01/24
tamsulosin 0.4 mg capsule 0.4 mg PO DAILY #0 caps 04/01/24
acetaminophen 325 mg tablet (Tylenol) 650 mg PO Q6HPRN PRN mild pain 07/01/24
apixaban 5 mg tablet (Eliquis) 5 mg PO BID 07/01/24
ferrous sulfate 325 mg (65 mg iron) tablet 325 mg PO DAILY 07/01/24
ibuprofen 200 mg tablet (Advil) 800 mg PO Q6HPRN PRN mild pain-0-3- 07/01/24
mirtazapine 7.5 mg tablet 7.5 mg PO HS 07/01/24
naproxen 250 mg tablet 125 mg PO BID 07/01/24
ondansetron HCl 4 mg tablet 4 mg PO AC 07/01/24
oxybutynin chloride 5 mg tablet 5 mg PO BID 07/01/24
vitamin B complex 1 tab PO DAILY 07/01/24
Review of Systems
-
History Source: Patient and Other (IGOR Beltran at bedside)
A 12 point ROS was completed and negative except as noted: Yes
Constitutional: Denies Fever, Weight Loss, Fatigue or Chills
EENT: Denies Tearing, Sore Throat or Mouth Swelling
Respiratory: Denies Cough or Trouble Breathing
Cardiac: Denies Chest Pain, Diaphoresis, Palpitations or Syncope
Abdomen/GI: Reports Black Stools; Denies Abdominal Pain, Nausea, Vomiting, Diarrhea, Constipated or Bloody Stools
: Reports Incontinence (Chronic urinary); Denies Dysuria, Frequency, Flank Pain or Urgency
Musculoskeletal: Denies Joint Pain or Joint Swelling
Skin: Reports Other (Left heel pressure ulcer present on admission no surrounding erythema); Denies Itching or Rash
Neurological: Denies Dizzy, Headache or Weakness
Endocrine: Reports No Symptoms
Hematologic/Lymphatic: Reports No Symptoms
Psych: Reports Calm
Physical Exam
Vital Signs
Vital Signs
Temp Pulse Resp BP Pulse Ox
97.7 F 104 20 112/76 94
07/01/24 14:38 07/01/24 15:00 07/01/24 15:00 07/01/24 14:49 07/01/24 15:00
Physical Exam
General: No Apparent Distress, Comfortable, Conversant and Other (Baseline confusion is oriented to first and last name, IGOR Lara at bedside but not year, place of living or history); No Fever or Chills
HEENT: NormoCephalic, Moist mucous membranes, PERRLA, [place] Conjunctivae and No Ptosis
Respiratory: Clear; No Wheezes, Rales or Rhonchi
Cardiac: S1/S2 and Regular Rhythm; No Murmur, Rub, Gallop or Peripheral Edema
Breast: Deferred by me
GI: Soft, Non Tender, Non Distended, Normal Bowel Sounds and No Hepatosplenomegaly
Rectal: Deferred by Provider
Genito-urinary: Deferred by me
Musculoskeletal: No Clubbing, No Cyanosis and No Edema
Skin: Warm, Dry and Ulcers (Left heel pressure ulcer present on admission no surrounding erythema); No Rash
Neuro: Awake, Alert, Oriented (Baseline confusion is oriented to first and last name, IGOR Lara at bedside but not year, place of living or history) and No Sensory Deficits; No Slurred Speech, Facial Droop or Tremors
Psych: Calm
Laboratory Results
-
07/01/24 14:48
07/01/24 14:48
Laboratory Results
Total Bilirubin 0.5 mg/dl (0.2-1.3) 07/01/24 14:48
AST 24 U/L (14-36) 07/01/24 14:48
ALT 12 U/L (0-35) 07/01/24 14:48
Alkaline Phosphatase 81 U/L (38-126) 07/01/24 14:48
Data Reviewed
-
Lab Data: Labs Reviewed by me
Impression/Plan
-
Impression/plan:
OBS telemetry
#Black stools concerning for GI bleed
Hgb 10.4, appears near baseline, check type and screen
-Dark stool guaiac positive in ER
-Hold Eliquis
- follow cbc
consult pt/ot case mgmt
-Patient should not be on Eliquis, naproxen 125 mg twice daily, ibuprofen 800 mg every 6 hours as needed mild pain
#Left heel ulceration due to bedbound status POA
-Consult wound care
#Chronic bedbound/nonambulatory since March 2024 as she refuses PT/OT per POA at bedside
#Status post left intertrochanteric hip fracture gamma nail repair 03/27/[address] Claire
-HOLD eliquis 5 mg bid (was DC'd on subcu Lovenox March 2024)
#Hx CLL
WBC 9.3, Hgb 10.4
#NPH
#memory impairment
#Anxiety/depression
-Oriented to first and last name and POA at bedside but not year, date, place of living or date of events
-Continue valproic 125 mg p.o. 3 times daily, Zoloft 75 mg daily
#Former alcohol use
-Continue folic acid
#HLD
-Continue atorvastatin 20 mg every afternoon
#Overactive bladder
Urinary retention March 2024 requiring Ramirez catheter at that time
-Continue tamsulosin 0.4 mg daily, oxybutynin 5 mg twice daily
#Chronic knee pain
-Continue Lidoderm patch
#Insomnia
-cont Remeron 7.5 mg at bedtime
dvt
scd's
DNR per POA Marco Beltran at bedside
[2024-07-01] MEDS: PROTONIX IV 80 MG IV (16:15)
--- NOTE | 2024-07-01 16:15 | W.PN.UPDATE ---
Update Note
Progress Note Update
This is an addendum to the H&P written by Nava Casillas on 07/01/2024.� Patient seen and examined independently with SURGERY SCHEDULING COORDINATOR.
84-year-old female past medical history of CLL, normal pressure hydrocephalus, anxiety/depression, former alcohol use disorder, hyperlipidemia, overactive bladder presenting with dark stool starting today.� Denies any shortness of breath, dizziness
or chest pain.�
Patient was recently admitted in March for for fall and left hip intertrochanteric hip fracture status post nail.� Since the surgery she has been adamant about not ambulating.� It appears she was started on on Eliquis for DVT prophylaxis after hip
fracture although exact indication unclear.
Stool is dark and heme positive.� Hemoglobin stable at 10.4 actually improved compared to previously.� Patient is on Eliquis, naproxen and ibuprofen.� Would hold all of these at this time.� Monitor for further rectal bleeding and anemia.� Patient
should ideally receive aggressive PT and stop Eliquis moving forward.
[2024-07-01] MEDS: NSS 250 IV (16:16)
[2024-07-01 16:31] LABS: PT 18.8 Sec (11.4-14.6)
[2024-07-01 16:32] LABS: APTT 42.1 Sec (23.4-35.0)
[2024-07-01] MEDS: LIPITOR 20 MG PO (18:33)
[2024-07-01] MEDS: PEPCID 20 MG PO (18:33)
[2024-07-01] MEDS: ZOFRAN 4 MG PO (18:33)
[2024-07-01] MEDS: DITROPAN 5 MG PO (22:56)
[2024-07-01] MEDS: REMERON 7.5 MG PO (22:56)
[2024-07-01] MEDS: TYLENOL 1000 MG PO (22:56)
[2024-07-01] MEDS: DEPAKOTE (12 HR RELEASE) 125 MG PO (22:56)
[2024-07-01] MEDS: LMX 4 1 APPLIC TOPICAL (23:03)
--- NOTE | 2024-07-02 06:15 | PTCARENOTE ---
When changing pt. RN noticed a good amount of burgundy stool with a large blood clot. Rebeca CLEMENS notified, Q6 H&H ordered. Phlebotomy at bedside to send morning labs. BP 109/69 HR 101. Will continue with current plan.
[2024-07-02 06:20] VITALS: BP 109/69
--- NOTE | 2024-07-02 06:29 | W.PN.UPDATE ---
Update Note
Progress Note Update
Patient had large amount of burgundy color bowel movement, with one big blood clot. Vital signs within normal limit. hgb level result is pending.
GI consult placed, Protonix IV daily and will trend h&h.
[2024-07-02 06:34] LABS: % Basophils 0.8 % (0-2); % Eosinophils 2.9 % (0-6); % Immature Granulocytes 2.7 % (0-0.5); % Lymphocytes 24.5 % (20.5-51.1); % Monocytes 9.1 % (1.7-9.3); Absolute Basophils 0.1 10^3/uL (0-0.2); Absolute Eosinophils 0.3 10^3/uL (0-0.7); Absolute Immature Granulocytes 0.3 10^3/uL (0-0.05); Absolute Lymphocytes 2.3 10^3/uL (1.2-3.4); Absolute Monocytes 0.9 10^3/uL (0.1-0.6); Absolute Neutrophils 5.6 10^3/uL (1.4-6.5); Hematocrit 27.6 % (37.0-47.0); Hemoglobin 8.9 g/dL (12.0-16.0); Mean Corp Hgb Conc. 32.2 g/dL (33.0-37.0); Mean Corpuscular Hgb 28.6 pg (27.0-31.0); Mean Corpuscular Volume 88.7 fL (81.0-99.0); Mean Platelet Volume 8.6 fL (7.4-10.4); Nucleated Red Blood Cells % 0 %; Platelet Count 425 10^3/uL (130-400); Red Blood Cell Count 3.11 10^6/uL (4.20-5.40); Red Cell Dist. Width 14.2 % (11.5-14.5); White Blood Cell Count 9.3 10^3/uL (4.8-10.8)
[2024-07-02 06:58] LABS: Blood Urea Nitrogen 24 mg/dl (7-17); Calcium 9.6 mg/dl (8.4-10.2); Carbon Dioxide 31 mmol/L (22-30); Chloride 102 mmol/L (98-107); Estimated Creatinine Clearance 43 ml/min; Glucose 106 mg/dl (70-99); Potassium 4.4 mmol/L (3.5-5.1); Sodium 140 mmol/L (135-145); eGFR > 60.00
[2024-07-02 07:40] VITALS: BP 96/55
--- NOTE | 2024-07-02 07:59 | CON.GI ---
Addendum entered and electronically signed by Rekha Rubi DO 07/02/24 11:06:
The patient was seen and examined by me independently in collaboration with the nurse practitioner.
Past medical history/social history/medications/allergies/family history reviewed.
Lab data and imaging data reviewed.
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
dark, or burgundy stools. Hemoglobin noted to be 10.4 with a drop to 8.9, elevated BUN to 23. She was tachycardic and hypotensive upon arrival, currently, she is hemodynamically stable. Rectal exam with maroon-colored stool, +fecal impaction.
She has been on Eliquis since her hip surgery for prophylaxis along with Tylenol, also admits to taking daily naproxen twice daily, ferrous sulfate and famotidine daily. Patient is very poor historian, offers no complaints. We were able to reach
her emergency contact, which is her close friend, who helps with decision-making as patient at baseline can be slightly confused and I do not feel she is fully consentable for any potential. At the time of evaluation she had a full diet ordered,
currently eating jello.
In regards to her UC, records from 1997 reviewed, appears to have mild, left-sided colitis, treated with mesalamine PO and OH. She h as been lost to follow-up, denies any active symptoms, not currently maintained on any therapy.
Plan:
-NPO, reevaluate in early afternoon to assess need for urgent EGD today vs. tomorrow, allowing for 48 hours for eliquis washout
-PPI gtt
-hold eliquis (last dose 07/01)
-suppository, followed by enema, to treat her impaction
-d/c all NSAIDs
-CBC q 12 hours
-IVF, maintain 2 large peripheral gauge IVs
-active T&C
Addendum entered and electronically signed by SARATH Parra 07/02/24 09:53:
Dr. Figueroa spoke with friend Salvatore [phone] who assist with POA for patient
Original Note:
Consultation
-
Date/Time Consultation Requested: 07/02/24 0630
Date/Time Consultation Performed: 07/02/24 0800
Requesting Provider: SARATH Camacho
Performing Provider: SARATH Zuniga, Lesly Rubi DO
Reason for Consultation: rectal bleeding
Medical History
Chief Complaint / HPI
Chief Complaint: rectal bleeding
History of Present Illness:
Pt is a 84yo with hx CLL, prior ETOH use, distant hx ulcerative colitis, normal pressure hydrocephalus ? 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 On admission
she was noted with hbg 10.4 with drop to 8.9 with BUN 23 with continued passage of burgundy stools. She has been on Eliquis BID since hip surgery for prophylaxis along with Tylenol TID, Naproxen BID, ferrous sulfate daily and Famotidine daily. Pt
poor historian but review of records noted distant hx ulcerative colitis. She had hx colonoscopy in 1996 with flare of colitis after stopping smoking. Procedure to TI with inflamed with focal areas bleeding. bx with focal active colitis
throughout. She was on Rowasa and Azulfidine around that time. She admits current bleeding starting about bout 1-2 days ago . She was noted tachycardia and hypotension on arrival. She denies dysphagia, GERD, abdominal pain, diarrhea,
constipation or prior bleeding.
Past Medical History
Past Medical History: Cancer (CLL), GERD, HTN, Hypercholesterolemia, Psychiatric (depression/anxiety, bipolar disorder, ETOH abuse ) and Other (Normal pressure hydrocelphalus, overactive bladder, osteoporosis, distant hx ulcerative colitis )
Past Surgical History: Orthopedic (left hip fx with gamma nail repair 03/27/24 ) and Other (? 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
Social History
Tobacco: Former Smoker
Alcohol: Former
Drug: None
Living: Assisted
Employment: Retired
Family History
Family History: Other (no family hx colon CA or polyps)
Allergies / Home Medications
Allergy/AdvReac Type Severity Reaction Status Date / Time
adhesive tape [Adhesive Tape] Allergy 'burned Verified 03/27/24 16:27
skin'
�Medication �Instructions �Recorded
sertraline 50 mg tablet 75 mg PO DAILY 04/16/15
atorvastatin 20 mg tablet 20 mg PO QPM 03/26/24
bisacodyl 10 mg rectal suppository 10 mg OH DAILYPRN PRN if no bm x 3 03/26/24
(Dulcolax (bisacodyl)) days
calcium carbonate 1,000 mg PO Q8HPRN PRN indigestion 03/26/24
calcium carbonate (Calcium 600) 600 mg PO DAILY 03/26/24
cholecalciferol (vitamin D3) 62.5 62.5 mcg PO DAILY 03/26/24
mcg (2,500 unit) capsule
divalproex 125 mg tablet,delayed 125 mg PO TID 03/26/24
release
famotidine 20 mg tablet 20 mg PO QPM 03/26/24
folic acid 400 mcg tablet 0.4 mg PO DAILY 03/26/24
lidocaine 4 % topical cream 1 applic topical BID knee pain 03/26/24
lidocaine 4 % topical cream 1 applic topical Q8HPRN PRN knee 03/26/24
pain
magnesium hydroxide 400 mg/5 mL 30 ml PO DAILYPRN PRN if no bm in 03/26/24
oral suspension (Milk of Magnesia) 3 days
menthol 4 % topical gel (Biofreeze 1 applic topical BID both knees 03/26/24
(menthol))
ondansetron HCl 4 mg tablet 4 mg PO Q8HPRN PRN nausea 03/26/24
sodium phosphates 19 gram-7 118 ml OH DAILYPRN PRN if 03/26/24
gram/118 mL enema (Fleet Enema) suppository is not effective
thiamine HCl (vitamin B1) 100 mg 100 mg PO DAILY 03/26/24
tablet
acetaminophen 500 mg tablet 1,000 mg (2 x 500 mg) PO TID #0 04/01/24
(Tylenol Extra Strength) tabs
polyethylene glycol 3350 17 gram 17 g PO DAILY #0 ea 04/01/24
oral powder packet (HealthyLax)
tamsulosin 0.4 mg capsule 0.4 mg PO DAILY #0 caps 04/01/24
acetaminophen 325 mg tablet 650 mg PO Q6HPRN PRN mild pain 07/01/24
(Tylenol)
apixaban 5 mg tablet (Eliquis) 5 mg PO BID 07/01/24
ferrous sulfate 325 mg (65 mg 325 mg PO DAILY 07/01/24
iron) tablet
ibuprofen 200 mg tablet (Advil) 800 mg PO Q6HPRN PRN mild pain-0-3- 07/01/24
mirtazapine 7.5 mg tablet 7.5 mg PO HS 07/01/24
naproxen 250 mg tablet 125 mg PO BID 07/01/24
ondansetron HCl 4 mg tablet 4 mg PO AC 07/01/24
oxybutynin chloride 5 mg tablet 5 mg PO BID 07/01/24
vitamin B complex 1 tab PO DAILY 07/01/24
Review of Systems
-
History Source: Patient
Constitutional: Reports No Symptoms
EENT: Reports No Symptoms
Respiratory: Reports No Symptoms
Cardiac: Reports No Symptoms
Abdomen/GI: Reports Other (burgundy stools )
: Reports No Symptoms
Musculoskeletal: Reports No Symptoms
Skin: Reports No Symptoms
Neurological: Reports Weakness
Endocrine: Reports No Symptoms
Hematologic/Lymphatic: Reports Bleeding
Vital Signs
Temp Pulse Resp BP Pulse Ox
97.4 F 101 18 109/69 94
07/01/24 23:30 07/02/24 06:20 07/01/24 23:30 07/02/24 06:20 07/01/24 23:30
Physical Exam
Exam
General: Well Developed, Well Nourished and No Apparent Distress
HEENT: Normocephalic and Anicteric
Respiratory: Clear
Cardiac: Regular Rhythm
GI: Soft, Non Tender and Non Distended
Rectal: Other (large stool burden with burgundy liquid stool around stool burden)
Musculoskeletal: No Clubbing and No Cyanosis
Skin: Warm and Dry
Neuro: Awake, Alert and Other (forgetful)
Psych: Calm
Results
WBC 9.3 10^3/uL (4.8-10.8) 07/02/24 06:22
Hgb 8.9 g/dL (12.0-16.0) L 07/02/24 06:22
Hct 27.6 % (37.0-47.0) L 07/02/24 06:22
MCV 88.7 fL (81.0-99.0) 07/02/24 06:22
Plt Count 425 10^3/uL (130-400) H 07/02/24 06:22
Absolute Neuts (auto) 5.6 10^3/uL (1.4-6.5) 07/02/24 06:22
PT 18.8 Sec (11.4-14.6) H 07/01/24 16:13
INR 1.60 07/01/24 16:13
APTT 42.1 Sec (23.4-35.0) H 07/01/24 16:13
Sodium 140 mmol/L (135-145) 07/02/24 06:22
Potassium 4.4 mmol/L (3.5-5.1) 07/02/24 06:22
Chloride 102 mmol/L (98-107) 07/02/24 06:22
Carbon Dioxide 31 mmol/L (22-30) H 07/02/24 06:22
BUN 24 mg/dl (7-17) H 07/02/24 06:22
Creatinine 0.9 mg/dL (0.6-1.0) 07/02/24 06:22
Calcium 9.6 mg/dl (8.4-10.2) 07/02/24 06:22
Total Bilirubin 0.5 mg/dl (0.2-1.3) 07/01/24 14:48
AST 24 U/L (14-36) 07/01/24 14:48
ALT 12 U/L (0-35) 07/01/24 14:48
Alkaline Phosphatase 81 U/L (38-126) 07/01/24 14:48
Diagnostic Image Results:
Prior GI Procedures:
EGD: none
Colonoscopy: 1996 solomon flare of colitis after stopping smoking. Procedure to TI with inflamed with focal areas bleeding. bx with focal active colitis throughout
Assessment / Plan
-
Pt is a 84yo with hx CLL, prior ETOH use, distant hx ulcerative colitis, normal pressure hydrocephalus ? 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 On admission
she was noted with hbg 10.4 with drop to 8.9 with BUN 23 with continued passage of burgundy stools. She has been on Eliquis BID since hip surgery for prophylaxis along with Tylenol TID, Naproxen BID, ferrous sulfate daily and Famotidine daily. Pt
poor historian but review of records noted distant hx ulcerative colitis. She had hx colonoscopy in 1996 with flare of colitis after stopping smoking. Procedure to TI with inflamed with focal areas bleeding. bx with focal active colitis
throughout. She was on Rowasa and Azulfidine around that time. She admits current bleeding starting about bout 1-2 days ago . She was noted tachycardia and hypotension on arrival. She denies dysphagia, GERD, abdominal pain, diarrhea,
constipation or prior bleeding.
-rectal bleeding
-fecal impaction
-tachy/hypotension on admission
-distant hx ulcerative colitis
-hip fx 03/2024 with Eliquis for DVT prophylaxis along with Tylenol and NSAID for pain control
-mild coagulopathy with Eliquis use
other med problems:
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
-anxiety/depression/bipolar
-CLL
-overactive bladder
PLAN:
etiology of rectal bleeding related to upper, lower or SB bleed in setting of Eliquis and recent NSAID use
noted with fecal impaction with burgundy overflow on exam stercoral colitis also in differential but noted darker red blood
trend hbg
change to clear diet then NPO
if increased stool output consider EGD later today vs double tomorrow after Eliquis wash out
cont Eliquis hold last dose 07/01
change to PPI gtt and hold Pepcid
hold NSAIDs
hold oral iron
give suppository now then enema with impaction
reviewed with nursing staff
will follow
-
-
Thank you for consultation and allowing me to participate in the patient's care. Please call the conservation worker GI physician during the after hours with any questions or concerns.
[2024-07-02] MEDS: ZOFRAN 4 MG PO ×3 (08:32→15:52)
[2024-07-02] MEDS: B COMPLEX w/VITAMIN C 1 CAPLET PO (08:32)
[2024-07-02] MEDS: NSS (PRESERVATIVE FREE) 10 ML IV (08:32)
[2024-07-02] MEDS: PROTONIX IV 40 MG IV (08:32)
[2024-07-02] MEDS: DEPAKOTE (12 HR RELEASE) 125 MG PO ×3 (08:34→21:05)
[2024-07-02] MEDS: FOLVITE 0.4 MG PO (08:34)
[2024-07-02] MEDS: DITROPAN 5 MG PO ×2 (08:34→19:53)
[2024-07-02] MEDS: FLOMAX 0.4 MG PO (08:34)
[2024-07-02] MEDS: FEOSOL 325 MG PO (08:34)
[2024-07-02] MEDS: LMX 4 1 APPLIC TOPICAL ×2 (08:34→19:54)
[2024-07-02] MEDS: VITAMIN B1 100 MG PO (08:35)
[2024-07-02] MEDS: VITAMIN D3 (cholecalciferol) 62.5 MCG PO (08:35)
[2024-07-02] MEDS: TYLENOL 1000 MG PO ×3 (08:35→21:05)
[2024-07-02] MEDS: ZOLOFT 75 MG PO (08:36)
[2024-07-02] MEDS: DULCOLAX 10 MG RECTAL (08:57)
--- NOTE | 2024-07-02 09:22 | W.PN.HOSP.TC ---
Today's Communication/Plan
-
see outlined plan
Assessment / Plan
Assessment / Plan
Assessment:
Acute blood loss anemia
Acute GI bleed, exacerbated by Eliquis
- monitor Hb, most recently 8.9, next check 12pm
- holding Eliquis, NSAIDs
- GI consulted, clears for now, possible EGD today vs colon/EGD tomorrow
Prior hx of UC
- not on any agents
Left heel ulceration due to bedbound status POA
- consult wound care
Chronic bedbound/nonambulatory since March 2024 as she refuses PT/OT per POA at bedside
Status post left intertrochanteric hip fracture gamma nail repair 03/27/[address] Claire
- PT/OT as clinically appropriate
- stop Eliquis (was used for DVT ppx)
- stop NSAIDs, use Tylenol prn
Hx CLL
- OP Hematology f/u
Hx of NPH
Memory impairment
Anxiety/depression
- oriented to first and last name and POA at bedside but not year, date, place of living or date of events
- per friend POA - she can understand and be lucid if not a challenging conversation.
- continue valproic 125 mg p.o. 3 times daily, Zoloft 75 mg daily
Former alcohol use
- continue folic acid
HLD
- continue atorvastatin 20 mg every afternoon
Overactive bladder
Urinary retention March 2024 requiring Ramirez catheter at that time
- continue tamsulosin 0.4 mg daily, oxybutynin 5 mg twice daily
Chronic knee pain
- continue Lidoderm patch
Insomnia
- continue Remeron 7.5 mg at bedtime
DVT ppx: SCDs
Code: DNR
Anticipated Discharge: > 48 hours
Subjective/Interval History
-
Date of Service: July 02, 2024
GI bleed noticed around 6 AM, burgundy stool, clots
Objective Data
-
Labs:
Laboratory Results
07/02/24 07/02/24 07/02/24
06:22 12:30 18:30
WBC 9.3
Hgb 8.9 L Pending Pending
Hct 27.6 L Pending Pending
Plt Count 425 H
Sodium 140
Potassium 4.4
Chloride 102
Carbon Dioxide 31 H
BUN 24 H
Creatinine 0.9
Glucose 106 H
Calcium 9.6
Vital Signs:
Vital Signs
Temp Pulse Resp BP Pulse Ox
97.9 F 94 17 96/55 95
07/02/24 07:40 07/02/24 07:40 07/02/24 07:40 07/02/24 07:40 07/02/24 07:40
Physical Exam
-
General: No Apparent Distress
HEENT: Normocephalic
Respiratory: Negative Wheezes
Cardiac: Regular Rhythm and S1/S2
GI: Soft
Genito-urinary: No Costovertebral Tender
Neuro: Awake and Alert
Psych: Confused
Data Reviewed
-
Total Time Spent with Patient (in minutes): 45
Labs: Labs Reviewed by me
[2024-07-02 09:42] VITALS: BP 99/69; PULSE 120
[2024-07-02 09:45] VITALS: BP 99/69; PULSE 120
[2024-07-02] MEDS: PROTONIX 100 IV ×2 (10:01→18:04)
--- NOTE | 2024-07-02 10:37 | PTCARENOTE ---
Dulcolax supp and tap water enema given as ordered. Pt had return of brown liquid from enema and small flecks of brown stool. Will continue to monitor.
--- NOTE | 2024-07-02 10:38 | WOUNDNOTE ---
WON RN note: Patient admitted with acute GI bleed.
See H&P for complete history. Lives at [facility].
PMH: Dementia, cancer-chemo 3yrs ago, depression, fractures to L foot, UC, HTN.
Wound Location and type/assessment: Patient admitted with: L heel with small unstageable PI, dry brown eschar. R heel is intact. R lateral leg with dry scabbed abrasion, open to air. Legs and feet dry/flaky skin. R hip and buttocks with mild MASD.
Patient turned to side with one assist, sacrum with scar, suspect old healed PI.
Appetite: Fair.
Pressure redistribution devices in place: On Accumax, asked nurse Cande to apply air overlay if patient becomes difficult to maintain turning schedule. L heel foam offloading heel boot ordered from [facility], nurse applied.
Plan: Foams applied to heels, offloading. Fungal cream ordered for R hip and buttocks. Mineral oil for legs daily.
Will confirm orders with hospitalist and updated nurse. Updated care plan and will follow as needed.
Note to case management of equipment requested for discharge: None.
[2024-07-02 12:19] LABS: Hematocrit 27.7 % (37.0-47.0); Hemoglobin 9.2 g/dL (12.0-16.0)
--- NOTE | 2024-07-02 13:07 | W.PN.UPDATE ---
Addendum entered and electronically signed by SARATH Parra 07/02/24 13:56:
plan for EGD tomorrow
Original Note:
Update Note
Progress Note Update
repeat hbg 9.2 s/p supp and enema with some brown liquid. Less blood but no solid stool passed. Will give mag citrate and at 1600 MOM enema. Will review with dr. Rubi for EGD vs EGD/colon in AM
[2024-07-02] MEDS: CITROMA 300 ML PO (13:31)
[2024-07-02 15:10] VITALS: BP 104/65
[2024-07-02] MEDS: LIPITOR 20 MG PO (17:02)
--- NOTE | 2024-07-02 18:23 | PTCARENOTE ---
Pt given 1 bottle of Mag citrate and milk and molasses enema as ordered. Pt had return of the enema with few flecks of brown stool. Some oozing of brown stool noted throughout rest of shift. No solid BM's passed.
[2024-07-02 18:53] LABS: Hematocrit 28.2 % (37.0-47.0); Hemoglobin 9.3 g/dL (12.0-16.0)
[2024-07-02] MEDS: REMERON 7.5 MG PO (21:04)
[2024-07-02 23:02] VITALS: BP 154/55
[2024-07-03] VITALS (7 sets, daily range): BP systolic 93–123; BP diastolic 50–86
[2024-07-03 01:12] LABS: Hematocrit 26.1 % (37.0-47.0); Hemoglobin 8.6 g/dL (12.0-16.0)
[2024-07-03] MEDS: PROTONIX 100 IV (04:41)
[2024-07-03] MEDS: B COMPLEX w/VITAMIN C 1 CAPLET PO (07:47)
[2024-07-03] MEDS: DEPAKOTE (12 HR RELEASE) 125 MG PO ×3 (07:47→21:38)
[2024-07-03] MEDS: ZOFRAN 4 MG PO ×2 (07:47→15:15)
[2024-07-03] MEDS: DITROPAN 5 MG PO ×2 (07:48→19:57)
[2024-07-03] MEDS: FLOMAX 0.4 MG PO (07:48)
[2024-07-03] MEDS: HYDROPHOR 1 APPLIC TOPICAL (07:49)
[2024-07-03] MEDS: FOLVITE 0.4 MG PO (07:49)
[2024-07-03] MEDS: LMX 4 1 APPLIC TOPICAL ×2 (07:49→19:57)
[2024-07-03] MEDS: VITAMIN D3 (cholecalciferol) 62.5 MCG PO (07:50)
[2024-07-03] MEDS: VITAMIN B1 100 MG PO (07:50)
[2024-07-03] MEDS: TYLENOL 1000 MG PO ×3 (07:50→21:39)
[2024-07-03] MEDS: ZOLOFT 75 MG PO (07:51)
[2024-07-03 08:30] LABS: Hematocrit 26.6 % (37.0-47.0); Hemoglobin 8.6 g/dL (12.0-16.0); Mean Corp Hgb Conc. 32.3 g/dL (33.0-37.0); Mean Corpuscular Volume 92.7 fL (81.0-99.0); Mean Platelet Volume 8.7 fL (7.4-10.4); Platelet Count 404 10^3/uL (130-400); Red Blood Cell Count 2.87 10^6/uL (4.20-5.40); Red Cell Dist. Width 14.2 % (11.5-14.5); White Blood Cell Count 8.7 10^3/uL (4.8-10.8)
[2024-07-03 08:47] LABS: INR 1.25; PT 15.8 Sec (11.4-14.6)
--- NOTE | 2024-07-03 09:29 | W.PN.HOSP.TC ---
Today's Communication/Plan
-
EGD today
Assessment / Plan
Assessment / Plan
Assessment:
Acute blood loss anemia
Acute GI bleed, exacerbated by Eliquis
- monitor Hb, most recently 8.6
- holding Eliquis, NSAIDs
- continue PPI drip
- EGD planned today
Fecal impaction
- s/p enema, suppository
Prior hx of UC
- not on any agents
Wound evals (Present on arrival) include L heel with small unstageable PI, dry brown eschar. R heel is intact. R lateral leg with dry scabbed abrasion, open to air. Legs and feet dry/flaky skin. R hip and buttocks with mild MASD. sacrum with scar,
suspect old healed PI.
- follow wound care recs
Chronic bedbound/nonambulatory since March 2024 as she refuses PT/OT per POA at bedside
Status post left intertrochanteric hip fracture gamma nail repair 03/27/[address] Claire
- PT/OT as clinically appropriate
- stop Eliquis (was used for DVT ppx)
- stop NSAIDs, use Tylenol prn
Hx CLL
- OP Hematology f/u
Hx of NPH
Memory impairment
Anxiety/depression
- oriented to first and last name and POA at bedside but not year, date, place of living or date of events
- per friend POJavier Chase - she can understand and be lucid if not a challenging conversation.
- continue valproic 125 mg p.o. 3 times daily, Zoloft 75 mg daily
Former alcohol use
- continue folic acid
HLD
- continue atorvastatin 20 mg every afternoon
Overactive bladder
Urinary retention March 2024 requiring Ramirez catheter at that time
- continue tamsulosin 0.4 mg daily, oxybutynin 5 mg twice daily
Chronic knee pain
- continue Lidoderm patch
Insomnia
- continue Remeron
DVT ppx: SCDs
Code: DNR
Anticipated Discharge: > 48 hours
Subjective/Interval History
-
Date of Service: July 03, 2024
denies any new complaints at present
Hb 8.6 currently
for EGD today
Objective Data
-
Labs:
Laboratory Results
07/03/24 07/03/24
00:51 08:06
WBC 8.7
Hgb 8.6 L 8.6 L
Hct 26.1 L 26.6 L
Plt Count 404 H
PT 15.8 H
INR 1.25
Sodium Pending
Potassium Pending
Chloride Pending
Carbon Dioxide Pending
BUN Pending
Creatinine Pending
Glucose Pending
Calcium Pending
Vital Signs:
Vital Signs
Temp Pulse Resp BP Pulse Ox
98.0 F 82 14 123/50 98
07/03/24 07:00 07/03/24 07:00 07/03/24 07:00 07/03/24 07:00 07/03/24 07:00
I&O
07/02/24 07/03/24 07/04/24
06:59 06:59 06:59
Intake Total 340 / 340
Balance 340 / 340
Physical Exam
-
General: No Apparent Distress
HEENT: Normocephalic and Atraumatic
Respiratory: Negative Wheezes
Cardiac: Regular Rhythm
GI: Soft
Musculoskeletal: No Edema
Neuro: AO x 3
Psych: Confused
Data Reviewed
-
Total Time Spent with Patient (in minutes): 45
Labs: Labs Reviewed by me
[2024-07-03 10:14] LABS: Blood Urea Nitrogen 24 mg/dl (7-17); Carbon Dioxide 32 mmol/L (22-30); Chloride 102 mmol/L (98-107); Estimated Creatinine Clearance 38 ml/min; Glucose 93 mg/dl (70-99); Potassium 5.1 mmol/L (3.5-5.1); Sodium 139 mmol/L (135-145)
[2024-07-03] MEDS: ZOFRAN PO (11:26)
--- NOTE | 2024-07-03 12:05 | CM ---
patient seen bedside.
Spoke with Samanta/adm for [facility] [phone]
Patient usually refuses therapy at facility.
Bedbound.
Has heel wound/being followed by wound care at the facility.
PT eval completed- rec: skilled rehab.
Per Samanta they will take patient back LTC.
Careport updated.
PCP: Dr Zapien
Pharmacy: [facility]
Plan: back to [facility]
Report# [phone] 2nd floor
[2024-07-03] MEDS: LIPITOR 20 MG PO (17:03)
[2024-07-03] MEDS: PROTONIX 40 MG PO (19:56)
[2024-07-03] MEDS: REMERON 7.5 MG PO (21:38)
[2024-07-04 06:54] VITALS: BP 113/69
[2024-07-04 07:54] LABS: Hematocrit 26.7 % (37.0-47.0); Hemoglobin 8.5 g/dL (12.0-16.0); Mean Corp Hgb Conc. 31.8 g/dL (33.0-37.0); Mean Corpuscular Hgb 30.2 pg (27.0-31.0); Platelet Count 390 10^3/uL (130-400); Red Blood Cell Count 2.81 10^6/uL (4.20-5.40); Red Cell Dist. Width 14.6 % (11.5-14.5); White Blood Cell Count 12.2 10^3/uL (4.8-10.8)
[2024-07-04 08:18] LABS: Blood Urea Nitrogen 23 mg/dl (7-17); Calcium 8.9 mg/dl (8.4-10.2); Carbon Dioxide 32 mmol/L (22-30); Chloride 102 mmol/L (98-107); Estimated Creatinine Clearance 43 ml/min; Glucose 89 mg/dl (70-99); Potassium 4.8 mmol/L (3.5-5.1); Sodium 140 mmol/L (135-145); eGFR > 60.00
[2024-07-04] MEDS: B COMPLEX w/VITAMIN C 1 CAPLET PO (08:26)
[2024-07-04] MEDS: ZOLOFT 75 MG PO (08:26)
[2024-07-04] MEDS: ZOFRAN 4 MG PO ×2 (08:26→11:23)
[2024-07-04] MEDS: VITAMIN B1 100 MG PO (08:26)
[2024-07-04] MEDS: DEPAKOTE (12 HR RELEASE) 125 MG PO (08:28)
[2024-07-04] MEDS: FLOMAX 0.4 MG PO (08:28)
[2024-07-04] MEDS: FOLVITE 0.4 MG PO (08:28)
[2024-07-04] MEDS: VITAMIN D3 (cholecalciferol) 62.5 MCG PO (08:28)
[2024-07-04] MEDS: PROTONIX 40 MG PO (08:28)
[2024-07-04] MEDS: LMX 4 1 APPLIC TOPICAL (08:29)
[2024-07-04] MEDS: TYLENOL 1000 MG PO (08:29)
[2024-07-04] MEDS: HYDROPHOR 1 APPLIC TOPICAL (08:30)
[2024-07-04] MEDS: DITROPAN 5 MG PO (08:30)
--- NOTE | 2024-07-04 10:37 | W.PN.HOSP.TC ---
Today's Communication/Plan
-
dc to SNF
Assessment / Plan
Assessment / Plan
Assessment:
Acute blood loss anemia
Acute GI bleed, exacerbated by Eliquis
- permanently stop Eliquis, NSAIDs
- s/p EGD 07/03 - Large hiatal hernia. Paraesophageal hernia. Erosive gastropathy with no stigmata of recent bleeding. Non-bleeding gastric ulcers with a clean ulcer base (Arthur Class III). Normal examined duodenum. No specimens collected.
- monitor Hb, most recently 8.5
- dc on PPI BID
- EGD repeat in 2 months with GI
Fecal impaction
- s/p enema, suppository
Prior hx of UC
- not on any agents
Wound evals (Present on arrival) include L heel with small unstageable PI, dry brown eschar. R heel is intact. R lateral leg with dry scabbed abrasion, open to air. Legs and feet dry/flaky skin. R hip and buttocks with mild MASD. sacrum with scar,
suspect old healed PI.
- follow wound care recs
Chronic bedbound/nonambulatory since March 2024 as she refuses PT/OT per POA at bedside
Status post left intertrochanteric hip fracture gamma nail repair 03/27/[address] Claire
- PT/OT as clinically appropriate
- stop Eliquis (was used for DVT ppx); encourage mobility/therapy at SNF
- stop NSAIDs, use Tylenol prn
Hx CLL
- OP Hematology f/u
Hx of NPH
Memory impairment
Anxiety/depression
- oriented to first and last name and POA at bedside but not year, date, place of living or date of events
- per friend POA Salvatore - she can understand and be lucid if not a challenging conversation.
- continue valproic 125 mg p.o. 3 times daily, Zoloft 75 mg daily
Former alcohol use
- continue folic acid
HLD
- continue atorvastatin 20 mg every afternoon
Overactive bladder
Urinary retention March 2024 requiring Ramirez catheter at that time
- continue tamsulosin 0.4 mg daily, oxybutynin 5 mg twice daily
Chronic knee pain
- continue Lidoderm patch
Insomnia
- continue Remeron
DVT ppx: SCDs
Code: DNR
More than 30 minutes spent in discharge including
Final examination of the patient
Summarizing hospital stay
Instructions for continuing care to all relevant caregivers
Preparation of discharge records, prescriptions, and referral forms
Total time spent (in minutes):41
Anticipated Discharge: Today
Subjective/Interval History
-
Date of Service: July 04, 2024
Hb stable
no complaints
Objective Data
-
Labs:
Laboratory Results
07/04/24
06:58
WBC 12.2 H
Hgb 8.5 L
Hct 26.7 L
Plt Count 390
Sodium 140
Potassium 4.8
Chloride 102
Carbon Dioxide 32 H
BUN 23 H
Creatinine 0.9
Glucose 89
Calcium 8.9
Vital Signs:
Vital Signs
Temp Pulse Resp BP Pulse Ox
98.2 F 93 16 113/69 97
07/04/24 06:54 07/04/24 06:54 07/04/24 06:54 07/04/24 06:54 07/04/24 06:54
I&O
07/03/24 07/04/24 07/05/24
06:59 06:59 06:59
Intake Total 340 / 340 70 / 70
Balance 340 / 340 70 / 70
Physical Exam
-
General: No Apparent Distress
HEENT: Normocephalic
Respiratory: Negative Wheezes
Cardiac: Regular Rhythm and S1/S2
GI: Soft
Genito-urinary: No Costovertebral Tender
Musculoskeletal: No Edema
Neuro: AO x 3
Psych: Calm
Data Reviewed
-
Total Time Spent with Patient (in minutes): 41
Labs: Labs Reviewed by me
--- NOTE | 2024-07-04 10:52 | W.DS.TRANS ---
DC Summary - Actionscript Developer
-
Discharge Instructions:
Discharge Diagnosis/Procedures acute GI bleed, blood loss anemia. EGD 07/03
Diet Regular
Activity As tolerated
Others Tests repeat Endoscopy in 2 months
Other Services OT,PT
Instructions:
Stand-Alone Forms:
Changes to Home Medications: No
Discharge Medications:
DC Medications w/original date entered in [employer]
sertraline 50 mg tablet 75 mg PO DAILY 04/16/15
atorvastatin 20 mg tablet 20 mg PO QPM 03/26/24
bisacodyl 10 mg rectal suppository (Dulcolax (bisacodyl)) 10 mg ID DAILYPRN PRN if no bm x 3 days 03/26/24
calcium carbonate 1,000 mg PO Q8HPRN PRN indigestion 03/26/24
calcium carbonate (Calcium 600) 600 mg PO DAILY 03/26/24
cholecalciferol (vitamin D3) 62.5 mcg (2,500 unit) capsule 62.5 mcg PO DAILY 03/26/24
divalproex 125 mg tablet,delayed release 125 mg PO TID 03/26/24
famotidine 20 mg tablet 20 mg PO QPM 03/26/24
folic acid 400 mcg tablet 0.4 mg PO DAILY 03/26/24
lidocaine 4 % topical cream 1 applic topical BID knee pain 03/26/24
lidocaine 4 % topical cream 1 applic topical Q8HPRN PRN knee pain 03/26/24
magnesium hydroxide 400 mg/5 mL oral suspension (Milk of Magnesia) 30 ml PO DAILYPRN PRN if no bm in 3 days 03/26/24
menthol 4 % topical gel (Biofreeze (menthol)) 1 applic topical BID both knees 03/26/24
ondansetron HCl 4 mg tablet 4 mg PO Q8HPRN PRN nausea 03/26/24
sodium phosphates 19 gram-7 gram/118 mL enema (Fleet Enema) 118 ml ID DAILYPRN PRN if suppository is not effective 03/26/24
thiamine HCl (vitamin B1) 100 mg tablet 100 mg PO DAILY 03/26/24
acetaminophen 500 mg tablet (Tylenol Extra Strength) 1,000 mg (2 x 500 mg) PO TID #0 tabs 04/01/24
polyethylene glycol 3350 17 gram oral powder packet (HealthyLax) 17 g PO DAILY #0 ea 04/01/24
tamsulosin 0.4 mg capsule 0.4 mg PO DAILY #0 caps 04/01/24
acetaminophen 325 mg tablet (Tylenol) 650 mg PO Q6HPRN PRN mild pain 07/01/24
ferrous sulfate 325 mg (65 mg iron) tablet 325 mg PO DAILY 07/01/24
ondansetron HCl 4 mg tablet 4 mg PO AC 07/01/24
oxybutynin chloride 5 mg tablet 5 mg PO BID 07/01/24
vitamin B complex 1 tab PO DAILY 07/01/24
mirtazapine 7.5 mg tablet 7.5 mg PO HS #30 tabs 07/04/24
pantoprazole 40 mg tablet,delayed release 40 mg PO BID #60 tabs 07/04/24
white petrolatum 42 % topical ointment (Hydrophor) 1 applic topical DAILY #100 grams 07/04/24
Home Medication Changes
Pending Results: No
Total time spent discharging patient (in min): 42
--- NOTE | 2024-07-04 11:03 | CM ---
Addendum entered by Zulma Phan 07/04/24 11:12:
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
also per patient request, asked for patients fingernails nails to be trimmed and cleaned up.
Original Note:
Patient for transfer back to [facility] today.
Ambulance transport forms on chart.
Careport Updated.
IMM completed.
Plan: back to [facility]- [facility]
Report# [phone] 2nd floor
--- NOTE | 2024-07-04 12:01 | PN.CDI ---
CDI
- -
CDI:
Physician Documentation Request
Admit Date: 07/02/24 09:52
Dear Doctor,
Please review the following and provide your response in the progress notes.
Clinical Indicators:
Pt admitted with rectal bleeding/ABLA / On Eliquis
EGD report, ' Few non-bleeding linear gastric ulcers with a clean ulcer base (Arthur
Class III) were found in the stomach..Use Prilosec (omeprazole) 40 mg PO BID for 8 weeks....Repeat upper endoscopy in 2 months to evaluate the response to therapy..'
Clarify which of the following accurately represents the suspected acuity of the (Gastric Ulcer)
Acute
Chronic
Other
Use of terms such as suspected, likely, concern for, or probable (associated with a specific diagnosis that is being evaluated, monitored, or treated as if it exists) are acceptable and can be coded in the inpatient setting, when documented at the
time of discharge.
Thank you,
Lashay Yu RN
CDI Specialist
[facility]
Please use your independent medical judgment in providing your response.
[2024-07-04 12:36] VITALS: BP 100/62
[2024-07-04 13:37] VITALS: BMI 29.4
--- NOTE | 2024-07-10 11:38 | W.PN.UPDATE ---
Update Note
Progress Note Update
CDI Query
Acute gastric ulcer
== END 2024-07-04 14:48 | DRG 813 ==
LOC: 4 WEST ACU 09:52
PROVIDERS: Clinical Nurse Specialist Family Health; Nurse Practitioner Adult Health; Nurse Practitioner Family; ADMITTING PHYSICIAN Hospitalist; ATTENDING PHYSICIAN Internal Medicine; CONSULT PHYSICIAN Internal Medicine; EMERGENCY PHYSICIAN Emergency Medicine; FAMILY PHYSICIAN Internal Medicine
PROC: 0DJ08ZZ Inspection of Upper Intestinal Tract, Via Natural or Artificial Opening Endoscopic (ICD-10-PCS; 2024-07-02)
DX: D68.32 Hemorrhagic disorder due to extrinsic circulating anticoagulants (principal); K25.0 Acute gastric ulcer with hemorrhage; D62 Acute posthemorrhagic anemia; C91.11 Chronic lymphocytic leukemia of B-cell type in remission; G91.2 (Idiopathic) normal pressure hydrocephalus; K31.89 Other diseases of stomach and duodenum; I48.91 Unspecified atrial fibrillation; E78.00 Pure hypercholesterolemia, unspecified; I10 Essential (primary) hypertension; F41.9 Anxiety disorder, unspecified; F10.21 Alcohol dependence, in remission; N32.81 Overactive bladder; L89.626 Pressure-induced deep tissue damage of left heel; G89.29 Other chronic pain; M25.569 Pain in unspecified knee; I95.9 Hypotension, unspecified; M81.0 Age-related osteoporosis without current pathological fracture; F31.9 Bipolar disorder, unspecified; K21.9 Gastro-esophageal reflux disease without esophagitis; K56.41 Fecal impaction; K44.9 Diaphragmatic hernia without obstruction or gangrene; G47.00 Insomnia, unspecified; Z66 Do not resuscitate; Z74.01 Bed confinement status; Z91.199 Patient's noncompliance with other medical treatment and regimen due to unspecified reason; Z91.048 Other nonmedicinal substance allergy status; Z87.891 Personal history of nicotine dependence; Z79.1 Long term (current) use of non-steroidal anti-inflammatories (NSAID); Z79.01 Long term (current) use of anticoagulants; Z98.2 Presence of cerebrospinal fluid drainage device; Z87.828 Personal history of other (healed) physical injury and trauma; Z87.11 Personal history of peptic ulcer disease
CPT/HCPCS: 80048; 80053; 85014; 85018; 85025; 85027; 85610; 85730; 86850; 86900; 86901; 97163; 97167; 99285

== ENCOUNTER → 2024-08-12 13:38 | Outpatient (REF) | payer MEDICARE, OTHER, SELFPAY | LOC: HWRAD 13:38 | PROVIDERS: ATTENDING PHYSICIAN Internal Medicine | DX: R19.00 Intra-abdominal and pelvic swelling, mass and lump, unspecified site (principal) | CPT/HCPCS: 74170; Q9967 ==